=== PATIENT | female | born 1980 | race American Indian/Alaskan Native ===

== ENCOUNTER 2017-02-01 11:33 | Inpatient (IN) | payer MEDICAID, OTHER ==
[2017-02-01 12:17] LABS: Basophils % (Auto) 0.6 % (0.0-1.8); Hematocrit 27.8 % (30.3-42.9); Hemoglobin 9.1 gm/dl (10.1-14.3); Mean Corpuscular HGB Conc 33 % (30-34); Mean Corpuscular Hemoglobin 29 pg (28-32); Mean Corpuscular Volume 88 fl (79-97); Platelet Count 233 K/mm3 (140-440); Red Blood Count 3.15 M/mm3 (3.65-5.03); Red Cell Distribution Width 12.3 % (13.2-15.2); White Blood Count 7.3 K/mm3 (4.5-11.0)
[2017-02-01 12:27] LABS: Anion Gap 17 mmol/L; BUN/Creatinine Ratio 5.23; Blood Urea Nitrogen 11 mg/dL (7-17); Calcium 8.8 mg/dL (8.4-10.2); Carbon Dioxide 22 mmol/L (22-30); Chloride 104.6 mmol/L (98-107); Glucose 84 mg/dL (65-100); Potassium 3.7 mmol/L (3.6-5.0); Sodium 140 mmol/L (137-145)
[2017-02-01] MEDS ORDERED: MORPHINE IV ONE (22:14)
[2017-02-01] MEDS ORDERED: NITRO-BID 2% TP ONE (22:14)
[2017-02-01] MEDS ORDERED: ZOFRAN IV ONE (22:14)
--- NOTE | 2017-02-01 22:27 | Emergency Department Report ---
HPI - General Chief Complaint: Chest Pain Time Seen by Provider: 02/01/17 22:05 - HPI HPI: Room 1 The patient is a 36-year-old female presenting with a chief complaint of chest pain. Patient states her symptoms began this morning when she awakened with pain across her chest that was aching in nature. Patient states her pain is associated with shortness of breath and nausea but denies vomiting or diaphoresis. The patient states her chest pain has been intermittent and she currently gives a score of 7-8/10. Patient states she is having occasional cough that has been nonproductive. Patient denies any history of fever. Patient states she's never had a stress test or cardiac catheterization Location: Chest Duration: Intermittent times one day Quality: Aching Severity: 8/10 Modifying factors: [see above] Context: [see above] Mode of transportation: [not driving] ED Past Medical Hx - Past Medical History Previous Medical History?: No - Surgical History Past Surgical History?: Yes Additional Surgical History: etopic. Breast biopsy- benign - Family History Family history: no significant - Social History Smoking Status: Never Smoker Substance Use Type: None - Medications Home Medications: Home Medications Medication Instructions Recorded Confirmed Last Taken Type No Known Home Medications [No 02/01/17 02/01/17 Unknown History Reported Home Medications] ED Review of Systems ROS: Stated complaint: CHEST PAIN/DIZZINESS/FATIGUE Other details as noted in HPI Comment: All other systems reviewed and negative Constitutional: denies: chills, fever Eyes: denies: eye pain, eye discharge, vision change ENT: denies: ear pain, throat pain Respiratory: cough, shortness of breath Cardiovascular: chest pain Endocrine: no symptoms reported Gastrointestinal: nausea. denies: abdominal pain, vomiting, diarrhea Genitourinary: denies: urgency, dysuria, discharge Musculoskeletal: denies: back pain, joint swelling, arthralgia Skin: denies: rash, lesions Neurological: denies: headache, weakness, paresthesias Psychiatric: denies: anxiety, depression Hematological/Lymphatic: denies: easy bleeding, easy bruising Physical Exam - Physical Exam Vital Signs: Vital Signs 02/01/17 02/01/17 02/01/17 11:48 15:06 21:57 Temperature 98 F 97.6 F 97.7 F Pulse Rate 88 58 L 88 Respiratory 18 16 18 Rate Blood Pressure 132/89 Blood Pressure 139/84 141/86 [Right] O2 Sat by Pulse 100 100 100 Oximetry 02/01/17 21:58 Temperature Pulse Rate Respiratory 18 Rate Blood Pressure Blood Pressure [Right] O2 Sat by Pulse Oximetry Physical Exam: GENERAL: The patient is well-developed well-nourished female lying on stretcher not appearing to be in acute distress. [] HEENT: Normocephalic. Atraumatic. Extraocular motions are intact. Patient has moist mucous membranes. NECK: Supple. Trachea midline CHEST/LUNGS: Clear to auscultation. There is no respiratory distress noted. HEART/CARDIOVASCULAR: Regular. There is no tachycardia. There is no gallop rub or murmur. ABDOMEN: Abdomen is soft, nontender. Patient has normal bowel sounds. There is no abdominal distention. SKIN: There is no rash. There is no edema. There is no diaphoresis. NEURO: The patient is awake, alert, and oriented. The patient is cooperative. The patient has normal speech MUSCULOSKELETAL: There is no evidence of acute injury. ED Course Vital Signs 02/01/17 02/01/17 02/01/17 11:48 15:06 21:57 Temperature 98 F 97.6 F 97.7 F Pulse Rate 88 58 L 88 Respiratory 18 16 18 Rate Blood Pressure 132/89 Blood Pressure 139/84 141/86 [Right] O2 Sat by Pulse 100 100 100 Oximetry 02/01/17 21:58 Temperature Pulse Rate Respiratory 18 Rate Blood Pressure Blood Pressure [Right] O2 Sat by Pulse Oximetry ED Medical Decision Making - Lab Data Result diagrams: 02/01/17 11:58 02/01/17 11:55 Laboratory Results - last 24 hr 02/01/17 02/01/17 02/01/17 11:55 11:58 14:41 WBC 7.3 RBC 3.15 L Hgb 9.1 L Hct 27.8 L MCV 88 MCH 29 MCHC 33 RDW 12.3 L Plt Count 233 Lymph % (Auto) 9.3 L [place] % (Auto) 10.7 H Eos % (Auto) 1.0 Baso % (Auto) 0.6 Lymph # 0.7 L [place] # 0.8 Eos # 0.1 Baso # 0.0 Seg Neutrophils % 78.4 H Seg Neutrophils # 5.8 Sodium 140 Potassium 3.7 Chloride 104.6 Carbon Dioxide 22 Anion Gap 17 BUN 11 Creatinine 2.1 H Estimated GFR 32 BUN/Creatinine Ratio 5.23 Glucose 84 Calcium 8.8 Troponin T < 0.010 0.049 H D Triglycerides 121 Cholesterol 168 LDL Cholesterol Direct 93 HDL Cholesterol 51 Cholesterol/HDL Ratio 3.29 02/01/17 17:19 WBC RBC Hgb Hct MCV MCH MCHC RDW Plt Count Lymph % (Auto) [place] % (Auto) Eos % (Auto) Baso % (Auto) Lymph # [place] # Eos # Baso # Seg Neutrophils % Seg Neutrophils # Sodium Potassium Chloride Carbon Dioxide Anion Gap BUN Creatinine Estimated GFR BUN/Creatinine Ratio Glucose Calcium Troponin T 0.024 Triglycerides Cholesterol LDL Cholesterol Direct HDL Cholesterol Cholesterol/HDL Ratio - EKG Data -: EKG Interpreted by Me EKG shows normal: sinus rhythm Rate: normal - EKG Data When compared to previous EKG there are: previous EKG unavailable Interpretation: other (no ischemic changes seen) - Radiology Data Radiology results: image reviewed (chest x-ray) interpreted by me: Chest x-ray-no focal infiltrates, no pneumothorax - Differential Diagnosis ACS, GERD, pericarditis Critical care attestation.: If time is entered above; I have spent that time in minutes in the direct care of this critically ill patient, excluding procedure time. ED Disposition Clinical Impression: Chest pain, Renal insufficiency, Elevated troponin Disposition: DC-09 OP ADMIT IP TO THIS HOSP Is pt being admited?: Yes Does the pt Need Aspirin: No (renal insufficiency) Condition: Fair Instructions: Chest Pain (ED) Referrals: PRIMARY CARE, [Primary Care Provider] - 3-5 Days Time of Disposition: 22:55 (hospitalist paged)
[2017-02-01] MEDS ORDERED: PLAVIX PO ONE (22:32)
--- NOTE | 2017-02-01 23:10 | History and Physical Report ---
History of Present Illness Date of examination: 02/01/17 Date of admission: 02/01/17 Chief complaint: Chest pain History of present illness: Is 36-year-old with no significant medical history except migraines. She presents with chest pain. Chest pain is midsternal, it out of 10 in intensity, it is an achy kind of pain. No shortness of breath. There was nausea but no vomiting. She denies any dizziness or syncope. This pain lasted for Levon therefore came to the emergency department for further evaluation. In ED the initial troponin was normal second troponin was slightly elevated. She was given Plavix because she is allergic to and is being admitted for further management. Past History Past Medical History: other (migraine headaches) Past Surgical History: Other (surgery for ectopic , right breast biopsy ) Social history: single, alcohol abuse, full code. denies: smoking Family history: diabetes, hypertension Medications and Allergies Allergies Allergy/AdvReac Type Severity Reaction Status Date / Time naproxen [From Naprosyn] Allergy Hives Verified 02/01/17 11:46 Home Medications Medication Instructions Recorded Confirmed Last Taken Type No Known Home Medications [No 02/01/17 02/01/17 Unknown History Reported Home Medications] Review of Systems All systems: negative (no fever, no abdominal pain, no urinary symptoms. All other systems reviewed and are negative) Exam - Physical Exam Narrative exam: General appearance: not in acute distress, HEENT: normocephalic, atraumatic Neck : supple, no JVD Lungs:clear to auscultation bilaterally, no crackles, no wheezes Heart :S1 and S2 regular, no murmurs, no gallop Abdomen: soft, non-tender, non-distended, normal bowel sounds Extremities: No edema clubbing or cyanosis. Neuro : awake, alert, oriented x 3. Normal speech. No focal neurological signs Psych:normal mood - Constitutional Vitals: Temp Pulse Resp BP Pulse Ox 97.7 F 88 18 141/86 100 02/01/17 21:57 02/01/17 21:57 02/01/17 21:58 02/01/17 21:57 02/01/17 21:57 Results - Labs CBC & Chem 7: 02/01/17 11:58 02/01/17 11:55 Labs: Abnormal lab results 02/01/17 02/01/17 02/01/17 Range/Units 11:55 11:58 14:41 RBC 3.15 L (3.65-5.03) M/mm3 Hgb 9.1 L (10.1-14.3) gm/dl Hct 27.8 L (30.3-42.9) % RDW 12.3 L (13.2-15.2) % Lymph % (Auto) 9.3 L (13.4-35.0) % [place] % (Auto) 10.7 H (0.0-7.3) % Lymph # 0.7 L (1.2-5.4) K/mm3 Seg Neutrophils % 78.4 H (40.0-70.0) % Creatinine 2.1 H (0.7-1.2) mg/dL Troponin T 0.049 H D (0.00-0.029) ng/mL Assessment and Plan Chest pain. To rule out acute coronary artery syndrome. Admit to Telemetry. Plavix given in ED. Aspirin not given because allergic to naproxen. For stress test in am. Nitropaste ordered. Cardiology consulted. Troponin slightly elevated. stress test in am XOCHITL. Etiology unclear. start iv fluids, repeat BMP in am DVT prophylaxis with heparin subcut. Full code
[2017-02-01] MEDS ORDERED: ZOFRAN IV PRN (23:36)
[2017-02-01] MEDS ORDERED: TYLENOL PO PRN (23:36)
[2017-02-01] MEDS ORDERED: DULCOLAX PR PRN (23:36)
[2017-02-01] MEDS ORDERED: NITROSTAT SL PRN (23:38)
[2017-02-01] MEDS ORDERED: SODIUM CHLORIDE FLUSH SYRINGE 10 ML IV PRN (23:38)
[2017-02-01] MEDS ORDERED: NACL 0.9% 1000 ML 1,000 ML IV SCH (23:45)
[2017-02-02] MEDS: MORPHINE IV PRN ×2 (01:35→06:34)
[2017-02-02] MEDS: PEPCID PO SCH ×3 (01:36→21:23)
[2017-02-02] MEDS: NITRO-BID 2% TP SCH ×4 (01:44→17:16)
[2017-02-02] MEDS: HEPARIN SUB-Q SCH ×3 (06:33→21:24)
--- NOTE | 2017-02-02 08:28 | XRay Report ---
AP CHEST : 02/01/17 22:35 CLINICAL: Chest pain. COMPARISON:Chest pain. FINDINGS: Normal heart and pulmonary vessels. The lungs are normally expanded and clear. The bones and soft tissues are normal. IMPRESSION: Normal chest.
[2017-02-02 08:42] LABS: Basophils % (Auto) 0.4 % (0.0-1.8); Eosinophils % (Auto) 0.7 % (0.0-4.3); Hematocrit 23.4 % (30.3-42.9); Hemoglobin 7.7 gm/dl (10.1-14.3); Mean Corpuscular HGB Conc 33 % (30-34); Mean Corpuscular Hemoglobin 29 pg (28-32); Mean Corpuscular Volume 87 fl (79-97); Platelet Count 192 K/mm3 (140-440); Red Cell Distribution Width 12.5 % (13.2-15.2); White Blood Count 6.3 K/mm3 (4.5-11.0)
[2017-02-02 08:54] LABS: Calcium 8.1 mg/dL (8.4-10.2); Chloride 107.1 mmol/L (98-107); Potassium 3.7 mmol/L (3.6-5.0)
[2017-02-02] MEDS: ULTRAM PO PRN ×2 (10:01→23:42)
[2017-02-02] MEDS ORDERED: LEXISCAN IV ONE ×2 (10:52→10:53)
--- NOTE | 2017-02-02 11:53 | Admit Criteria Form ---
Admission Criteria Documentation: CHEST PAIN Clinical Indications for Admission to Inpatient Care (Place 'X' for any and all applicable criteria): Admission is indicated for chest pain and ANY ONE of the following(1)(2)(3)(4)(5 ): [ ]I. Angina with acute coronary syndrome (Also use Myocardial Infarction or Angina guideline) [ ]II. Hemodynamic instability [ ]III. Angina needing acute intervention as indicated by ALL of the following( 11)(12): [ ]a) Unstable angina is present as indicated by angina that is ANY ONE of the following: [ ]i) New onset [ ]ii) Nocturnal [ ]iii) Prolonged at rest [ ]iv) Progressive [ ]b) Angina warrants acute intervention as indicated by ANY ONE of the following: [ ]i) Recurrent angina (e.g, not responding as previously to treatment) [ ]ii) Angina at rest or with low-level activities despite initial medical therapy [ ]iii) New or presumably new ST-segment depression on ECG [ ]iv) Signs or symptoms of heart failure (eg, dyspnea, pulmonary edema) [ ]v) New or worsening mitral regurgitation [ ]vi) Hemodynamic instability [ ]vii) Dangerous arrhythmia (eg, sustained ventricular tachycardia) [ ]viii) History of percutaneous coronary intervention within 6 months [ ]ix) History of coronary artery bypass graft surgery [ ]x) ALEXANDRA risk score of 2 or greater[A] [ ]xi) History of Diabetes(14) [ ]xii) High-risk cardiac ischemia findings on noninvasive testing (e.g, echocardiogram, treadmill testing, nuclear scan) [ ]xiii) Chronic renal insufficiency (ie, estimated GFR less than 60 mL/min/1.732m) [ ]xiv) Left ventricular ejection fraction less than 40% [ ]IV. Evidence of NE (eg, cardiac biomarkers positive, ST-segment elevation on ECG) also use Myocardial Infarction Criteria Form. [ ]V. Pulmonary edema [ ]. Respiratory distress [ ]VII. Chest pain indicative of serious diagnosis other than coronary artery disease (eg, aortic dissection) [X]VIII. Contraindications and/or Inappropriate clinical situations for Observational Care in patients with Chest Pain, when ANY ONE of the following is required: [ ]a) Patient with risk factor for pulmonary embolism, acute coronary syndrome and myocardial infarction (18) [ ]b) Patient with Pulmonary embolism require an average LOS of 4.3 days, therefore emergency department observation management is inappropriate 18,23 [ ]c) Painful condition/s in the elderly, have the highest rate of recidivism after emergency department observation management (10.8%) 20,21,22 [X]d) Elevated cardiac biomarker requires intensive and exhaustive care (19) [ ]IX. General contraindications and/or Inappropriate clinical situations for Observational Care in patients with Chest Pain, when ANY ONE of the following is required: [ ]a) Prediction of prolongation of LOS based on ANY ONE of the following may be considered as a contraindication for observational care 2, 3, 4, 5, 6, 7, 8, 9, 10, 11 [ ]i) Age > 65 yrs. [ ]ii) Patient arriving by ambulance [ ]iii) Patient with high acuity [ ]iv) Patient requiring vital sign monitoring [ ]v) Patient on IV medication [ ]b) Systolic blood pressures 180mmHg 3,12 [ ]c) Patient with altered mental status including delirium and other alteration of consciousness, (3) [ ]d) Patient whose discharge disposition will be to a [place] [facility] home or rehabilitation home should not be managed in Emergency Department Observation Unit. CMS rule requires 3 days hospital stay before such placement. 3,13 [ ]e) Patient with failure to thrive due to broad array of etiologies 3,16,17 [ ]f) Inability to ambulate 3,14 Extended stay beyond goal length of stay may be needed for (1)(28): [ ]a) Specific condition diagnosed after evaluation (eg, pulmonary embolism, aortic dissection) [ ]b) Unstable angina [ ]c) Continued suspicion of acute coronary syndrome with inability to complete needed cardiac evaluation (eg, patient clinically unable to undergo stress testing) [ ]d) Myocardial infarction (Contents from ANGINA and CHEST PAIN clinical indications for admission to inpatient care have been integrated in this form) The original [facility] content created by [employer] has been revised. The portions of the content which have been revised are identified through the use of italic text or in bold, and [facility] has neither reviewed nor approved the modified material. All other unmodified content is copyright [facility]. Please see references footnoted in the original [facility] edition 2016 Admission Criteria Met: Yes
--- NOTE | 2017-02-02 13:28 | Progress Note ---
Assessment and Plan Assessment and plan: Assessment/Plan 1. Chest pain sightly elevated troponin Patient scheduled for stress test today Echocardiogram ordered Cardiology consulted 2 Acute Kidney Injury/Vasomotor Nephropathy Etiology unknown Elevated creatinine IVF hydration We will repeat BMP Renal ultrasound Nephrology consulted 3 Anemia Stool occult ordered Low H&H We will closely monitor CBC DVT prophylaxis Heparin Total Time Spent with Patient (Minutes): 37 minutes History Interval history: Patient has uneventful night except headache. Hospitalist Physical - Constitutional Vitals: Temp Pulse Resp BP Pulse Ox 98.3 F 81 18 115/67 99 02/02/17 09:02 02/02/17 11:35 02/02/17 09:02 02/02/17 11:35 02/02/17 09:02 General appearance: Present: no acute distress - EENT Eyes: Present: PERRL ENT: hearing intact, clear oral mucosa - Neck Neck: Present: normal ROM - Respiratory Respiratory effort: normal - Cardiovascular Heart Sounds: Present: S1 & S2 - Extremities Extremities: no ischemia Peripheral Pulses: within normal limits - Abdominal General gastrointestinal: soft, non-tender - Integumentary Integumentary: Present: clear - Psychiatric Psychiatric: appropriate mood/affect - Neurologic Neurologic: CNII-XII intact - Allied Health Allied health notes reviewed: nursing Results - Labs CBC & Chem 7: 02/02/17 08:00 02/02/17 08:00 Labs: Laboratory Last Values WBC 6.3 K/mm3 (4.5-11.0) 02/02/17 08:00 RBC 2.70 M/mm3 (3.65-5.03) L 02/02/17 08:00 Hgb 7.7 gm/dl (10.1-14.3) L 02/02/17 08:00 Hct 23.4 % (30.3-42.9) L 02/02/17 08:00 MCV 87 fl (79-97) 02/02/17 08:00 MCH 29 pg (28-32) 02/02/17 08:00 MCHC 33 % (30-34) 02/02/17 08:00 RDW 12.5 % (13.2-15.2) L 02/02/17 08:00 Plt Count 192 K/mm3 (140-440) 02/02/17 08:00 Lymph % (Auto) 8.0 % (13.4-35.0) L 02/02/17 08:00 [place] % (Auto) 8.8 % (0.0-7.3) H 02/02/17 08:00 Eos % (Auto) 0.7 % (0.0-4.3) 02/02/17 08:00 Baso % (Auto) 0.4 % (0.0-1.8) 02/02/17 08:00 Lymph # 0.5 K/mm3 (1.2-5.4) L 02/02/17 08:00 [place] # 0.6 K/mm3 (0.0-0.8) 02/02/17 08:00 Eos # 0.0 K/mm3 (0.0-0.4) 02/02/17 08:00 Baso # 0.0 K/mm3 (0.0-0.1) 02/02/17 08:00 Seg Neutrophils % 82.1 % (40.0-70.0) H 02/02/17 08:00 Seg Neutrophils # 5.1 K/mm3 (1.8-7.7) 02/02/17 08:00 Sodium 142 mmol/L (137-145) 02/02/17 08:00 Potassium 3.7 mmol/L (3.6-5.0) 02/02/17 08:00 Chloride 107.1 mmol/L (98-107) H 02/02/17 08:00 Carbon Dioxide 24 mmol/L (22-30) 02/02/17 08:00 Anion Gap 15 mmol/L 02/02/17 08:00 BUN 10 mg/dL (7-17) 02/02/17 08:00 Creatinine 2.0 mg/dL (0.7-1.2) H 02/02/17 08:00 Estimated GFR 34 ml/min 02/02/17 08:00 BUN/Creatinine Ratio 5.00 % 02/02/17 08:00 Glucose 94 mg/dL (65-100) 02/02/17 08:00 Calcium 8.1 mg/dL (8.4-10.2) L 02/02/17 08:00 Troponin T 0.024 ng/mL (0.00-0.029) 02/01/17 17:19 Triglycerides 121 mg/dL (2-149) 02/01/17 14:41 Cholesterol 168 mg/dL (50-199) 02/01/17 14:41 LDL Cholesterol Direct 93 mg/dL (50-130) 02/01/17 14:41 HDL Cholesterol 51 mg/dL (40-59) 02/01/17 14:41 Cholesterol/HDL Ratio 3.29 % 02/01/17 14:41 - Imaging and Cardiology Chest x-ray: image reviewed (Normal)
--- NOTE | 2017-02-02 14:31 | Consultation ---
History of Present Illness Consult date: 02/02/17 Requesting physician: DENISHA CHATMAN Consult reason: chest pain History of present illness: The patient is a s 36-year-old female with a past medical history significant for migraines. She presented with c/o chest pain since yesterday AM. She reports that the chest pain awoke her from sleep yesterday morning. She then sat upright in bed and noted SOB and dizziness. When she got out of bed, she noted BLE weakness. Her symptoms persisted throughout the morning and her daughter eventually brought her to the ED for further evaluation. She describes her chest pain as an intermittent, nonexertional, nonradiating precordial aching pain. On evaluation, she states that her original chest pain has nearly resolved. However, she is noted to have precordial tenderness to palpation but reports that this pain is different than her chest pain on presentation. She also currently c/o migraine headache. She underwent lexiscan MPI stress test this AM, which revealed small inferoapical perfusion defect, normal EF. Past History Past Medical History: other (migraine headaches) Past Surgical History: Other (surgery for ectopic , right breast biopsy ) Social history: single, full code. denies: smoking, alcohol abuse Family history: diabetes, hypertension Medications and Allergies Allergies Allergy/AdvReac Type Severity Reaction Status Date / Time naproxen [From Naprosyn] Allergy Hives Verified 02/01/17 11:46 Home Medications Medication Instructions Recorded Confirmed Last Taken Type No Known Home Medications [No 02/01/17 02/01/17 Unknown History Reported Home Medications] Active Meds: Active Medications Acetaminophen (Tylenol) 650 mg PO Q4H PRN PRN Reason: Pain MILD(1-3)/Fever >100.5/AGRAWAL Bisacodyl (Dulcolax) 10 mg [place] QDAY PRN PRN Reason: Constipation unrelieved by MOM Clopidogrel Bisulfate (Plavix) 75 mg PO QDAY RASHMI Famotidine (Pepcid) 10 mg PO BID [facility] Heparin Sodium (Porcine) (Heparin) 5,000 unit SUB-Q Q8HR [facility] Last Admin: 02/02/17 06:33 Dose: 5,000 unit Sodium Chloride (Nacl 0.9% 1000 Ml) 2,000 mls @ 100 mls/hr IV DIRECT RASHMI Morphine Sulfate (Morphine) 2 mg IV Q5MIN PRN PRN Reason: Chest Pain Last Admin: 02/02/17 06:34 Dose: 2 mg Nitroglycerin (Nitrostat) 0.4 mg SL Q5M PRN PRN Reason: Chest Pain Nitroglycerin (Nitro-Bid 2%) 0.5 inch TP QIDNTG [facility] PRN Reason: Protocol Last Admin: 02/02/17 10:02 Dose: 0.5 inch Ondansetron HCl (Zofran) 4 mg IV Q6H PRN PRN Reason: nausea or vomiting Sodium Chloride (Sodium Chloride Flush Syringe 10 Ml) 10 ml IV PRN PRN PRN Reason: LINE FLUSH Tramadol HCl (Ultram) 50 mg PO Q4H PRN PRN Reason: Pain, Moderate (4-6) Last Admin: 02/02/17 10:01 Dose: 50 mg Review of Systems Constitutional: no weight loss, no weight gain, no fever, no chills, no sweats Ears, nose, mouth and throat: no ear pain, no nose pain, no sinus pressure, no sinus pain Cardiovascular: chest pain, lightheadedness, shortness of breath, no orthopnea, no palpitations, no rapid/irregular heart beat, no edema, no syncope, no dyspnea on exertion, no high blood pressure, no leg edema Respiratory: shortness of breath, no cough, no dyspnea on exertion, no congestion, no wheezing, no pain Gastrointestinal: no abdominal pain, no nausea, no vomiting, no diarrhea, no constipation, no change in bowel habits Genitourinary Female: no pelvic pain, no flank pain, no dysuria, no urinary frequency, no urgency Musculoskeletal: no neck stiffness, no neck pain, no shooting arm pain, no arm numbness/tingling, no low back pain, no shooting leg pain, no leg numbness/ tingling, no redness of joints Integumentary: no rash, no pruritis, no redness, no sores, no wounds Neurological: no paralysis, no weakness, no parathesias, no numbness, no tingling, no seizures, no syncope Psychiatric: no anxiety Endocrine: no cold intolerance, no heat intolerance Hematologic/Lymphatic: no easy bruising, no easy bleeding, no lymphadenopathy Allergic/Immunologic: no urticaria, no wheezing, no persistent infections Physical Examination Vital Signs Temp Pulse Resp BP Pulse Ox 98 F 88 18 132/89 100 02/01/17 11:48 02/01/17 11:48 02/01/17 11:48 02/01/17 11:48 02/01/17 11:48 General appearance: no acute distress HEENT: Positive: PERRL, Normocephaly, Mucus Membranes Moist Neck: Positive: neck supple, trachea midline Cardiac: Positive: Reg Rate and Rhythm, S1/S2 Lungs: Positive: clear to auscultation Neuro: Positive: Grossly Intact, Cranial Nerve 2-12 Intact Abdomen: Positive: Soft, Active Bowel Sounds. Negative: Tender Skin: Positive: Clear. Negative: Rash, Wound Musculoskeletal: No Fluid Collection, No Pain, Normal Range of Motion Extremities: Absent: edema Results 02/02/17 08:00 02/02/17 08:00 CBC 02/02/17 Range/Units 08:00 WBC 6.3 (4.5-11.0) K/mm3 RBC 2.70 L (3.65-5.03) M/mm3 Hgb 7.7 L (10.1-14.3) gm/dl Hct 23.4 L (30.3-42.9) % Plt Count 192 (140-440) K/mm3 Lymph # 0.5 L (1.2-5.4) K/mm3 [place] # 0.6 (0.0-0.8) K/mm3 Eos # 0.0 (0.0-0.4) K/mm3 Baso # 0.0 (0.0-0.1) K/mm3 Comprehensive Metabolic Panel 02/02/17 Range/Units 08:00 Sodium 142 (137-145) mmol/L Potassium 3.7 (3.6-5.0) mmol/L Chloride 107.1 H (98-107) mmol/L Carbon Dioxide 24 (22-30) mmol/L BUN 10 (7-17) mg/dL Creatinine 2.0 H (0.7-1.2) mg/dL Glucose 94 (65-100) mg/dL Calcium 8.1 L (8.4-10.2) mg/dL - Imaging and Cardiology EKG: image reviewed EKG interpretations - Telemetry EKG Rhythm: Sinus Rhythm - EKG Sinus rhythms and dysrhythmias: sinus rhythm Assessment and Plan S/p lexiscan MPI this AM, which revealed small inferoapical perfusion defect which may be artifactual, normal EF. D/c plavix. Await echo. Obtain DDimer. Obtain orthostatics. Await nephrology consultation. Anemia w/u per primary. Consider GI consultation. The patient has been seen in conjunction with Dr. Diaz who agrees with the assessment and plan of care. - Patient Problems (1) Chest pain Current Visit: Yes Status: Acute Qualifiers: Chest pain type: C Ischemic chest pain type: I Plan to address problem: EKG with NAF (2) Elevated troponin Current Visit: Yes Status: Acute Plan to address problem: negative for AMI (3) Pre-syncope Current Visit: Yes Status: Acute (4) Anemia Current Visit: Yes Status: Acute Qualifiers: Anemia type: A Iron deficiency anemia type: I Vitamin B12 deficiency anemia type: V Folate deficiency anemia type: F Bone marrow failure anemia type: B Hemolytic anemia type: H Other causes of anemia: O Chronic kidney disease stage: C (5) XOCHITL (acute kidney injury) Current Visit: Yes Status: Acute
[2017-02-02] MEDS: NACL 0.9% 1000 ML 2,000 ML IV SCH (17:28)
--- NOTE | 2017-02-02 19:35 | Treadmill Report ---
REASON FOR STUDY: Chest pain. IMAGING PROTOCOL: The patient received 10 mCi of Technetium 99m Tetrofosmin for resting image and 28 mCi of Technetium 99m Tetrofosmin for stress imaging. The imaging for the whole procedure was completed 30-90 minutes following the initial injection of Technetium 99m tetrofosmin. The SPECT imaging in the 180 degree arc was performed in the right anterior oblique projection. Computerized reconstruction of the images was performed for analysis. IMAGING RESULTS: Normal cavity size from stress to rest. Normal distribution of radionuclide in the anterior, inferior, septal, lateral. There is a small area of reversibility seen in the inferoapical region seen on stress compared to rest. Gated SPECT, EF 68% with no wall motion abnormality. The patient infused Lexiscan with no EKG changes. SUMMARY: 1. Negative Lexiscan EKG. 2. The patient has a small inferoapical defect suggestive of ischemia, otherwise normal perfusion anterior, inferior, septal, lateral regions and anterior apical with normal EF is 68%. [facility]# [id number] JENNI/CODY
[2017-02-02] MEDS ORDERED: PLAVIX PO SCH (20:00)
--- NOTE | 2017-02-02 22:47 | Consultation ---
History of Present Illness - Reason for Consult Consult date: 02/02/17 elevated d-dimer Requesting physician: NATI MIRANDA - History of Present Illness Thank you for this consult. Patient seen/examined.record reviewed, case d/w patient. Kindly asked to see for the reasons above. As per her account, no hx of anemia, except in 2012 with .W/up revealed elevated d-dimer. unable to do full imaging w/up due to previous exposure to chemicals.He denies any CP/ SOB at this time.It is well known, that d-dimer is very sensitive but non specific, and with no sxs,i think she can be put on prophylactic anticoag until V/Q can be done.will do w/up for anemia. Past History Past Medical History: other (migraine headaches) Past Surgical History: Other (surgery for ectopic , right breast biopsy ) Social history: single, full code. denies: smoking, alcohol abuse Family history: diabetes, hypertension Medications and Allergies Allergies Allergy/AdvReac Type Severity Reaction Status Date / Time naproxen [From Naprosyn] Allergy Hives Verified 02/01/17 11:46 Home Medications Medication Instructions Recorded Confirmed Last Taken Type No Known Home Medications [No 02/01/17 02/01/17 Unknown History Reported Home Medications] Active Meds: Active Medications Acetaminophen (Tylenol) 650 mg PO Q4H PRN PRN Reason: Pain MILD(1-3)/Fever >100.5/AGRAWAL Bisacodyl (Dulcolax) 10 mg [place] QDAY PRN PRN Reason: Constipation unrelieved by MOM Famotidine (Pepcid) 10 mg PO BID [facility] Last Admin: 02/02/17 21:23 Dose: 10 mg Heparin Sodium (Porcine) (Heparin) 5,000 unit SUB-Q Q8HR [facility] Last Admin: 02/02/17 21:24 Dose: 5,000 unit Sodium Chloride (Nacl 0.9% 1000 Ml) 2,000 mls @ 100 mls/hr IV DIRECT [facility]ASH[facility] Last Admin: 02/02/17 17:28 Dose: 100 mls/hr Morphine Sulfate (Morphine) 2 mg IV Q5MIN PRN PRN Reason: Chest Pain Last Admin: 02/02/17 06:34 Dose: 2 mg Nitroglycerin (Nitrostat) 0.4 mg SL Q5M PRN PRN Reason: Chest Pain Ondansetron HCl (Zofran) 4 mg IV Q6H PRN PRN Reason: nausea or vomiting Sodium Chloride (Sodium Chloride Flush Syringe 10 Ml) 10 ml IV PRN PRN PRN Reason: LINE FLUSH Tramadol HCl (Ultram) 50 mg PO Q4H PRN PRN Reason: Pain, Moderate (4-6) Last Admin: 02/02/17 10:01 Dose: 50 mg Review of Systems Breasts: deferred Exam - Constitutional Vitals: Temp Pulse Resp BP Pulse Ox 98.3 F 75 18 111/80 98 02/02/17 20:00 02/02/17 20:00 02/02/17 20:00 02/02/17 20:00 02/02/17 20:00 General appearance: Present: no acute distress, well-nourished - EENT Eyes: Present: PERRL ENT: hearing intact, clear oral mucosa - Neck Neck: Present: supple, normal ROM - Respiratory Respiratory effort: normal Respiratory: bilateral: CTA - Cardiovascular Heart Sounds: Present: S1 & S2. Absent: rub, click - Extremities Extremities: pulses symmetrical, No edema Peripheral Pulses: within normal limits - Abdominal General gastrointestinal: Present: soft, non-tender, non-distended, normal bowel sounds Female genitourinary: Present: deferred - Rectal Rectal Exam: deferred - Integumentary Integumentary: Present: clear, warm, dry - Musculoskeletal Musculoskeletal: gait normal, strength equal bilaterally - Psychiatric Psychiatric: appropriate mood/affect, intact judgment & insight - Neurologic Neurologic: CNII-XII intact, moves all extremities Results - Labs CBC & Chem 7: 02/02/17 08:00 02/02/17 08:00 Labs: Abnormal lab results 02/02/17 02/02/17 02/02/17 Range/Units 08:00 08:00 15:43 RBC 2.70 L (3.65-5.03) M/mm3 Hgb 7.7 L (10.1-14.3) gm/dl Hct 23.4 L (30.3-42.9) % RDW 12.5 L (13.2-15.2) % Lymph % (Auto) 8.0 L (13.4-35.0) % [place] % (Auto) 8.8 H (0.0-7.3) % Lymph # 0.5 L (1.2-5.4) K/mm3 Seg Neutrophils % 82.1 H (40.0-70.0) % D-Dimer 3373.48 H (0-234) ng/mlDDU Chloride 107.1 H (98-107) mmol/L Creatinine 2.0 H (0.7-1.2) mg/dL Calcium 8.1 L (8.4-10.2) mg/dL Assessment and Plan - Patient Problems (1) XOCHITL (acute kidney injury) Current Visit: Yes Status: Acute (2) Anemia Current Visit: Yes Status: Acute Qualifiers: Anemia type: A Iron deficiency anemia type: I Vitamin B12 deficiency anemia type: V Folate deficiency anemia type: F Bone marrow failure anemia type: B Hemolytic anemia type: H Other causes of anemia: O Chronic kidney disease stage: C Plan to address problem: see w/up (3) Chest pain Current Visit: Yes Status: Acute Qualifiers: Chest pain type: C Ischemic chest pain type: I Plan to address problem: follow cardiology
[2017-02-03 00:25] LABS: Bilirubin,Direct < 0.2 mg/dL (0-0.2); Bilirubin,Indirect 0.2 mg/dL
[2017-02-03] MEDS: NACL 0.9% 1000 ML 2,000 ML IV SCH (04:10)
[2017-02-03 05:47] LABS: Hematocrit 22.5 % (30.3-42.9); Hemoglobin 7.3 gm/dl (10.1-14.3); Mean Corpuscular HGB Conc 32 % (30-34); Mean Corpuscular Hemoglobin 29 pg (28-32); Mean Corpuscular Volume 90 fl (79-97); Platelet Count 179 K/mm3 (140-440); Red Blood Count 2.52 M/mm3 (3.65-5.03); Red Cell Distribution Width 12.6 % (13.2-15.2); White Blood Count 4.6 K/mm3 (4.5-11.0)
[2017-02-03 06:09] LABS: Anion Gap 16 mmol/L; BUN/Creatinine Ratio 5.26; Blood Urea Nitrogen 10 mg/dL (7-17); Calcium 7.8 mg/dL (8.4-10.2); Carbon Dioxide 22 mmol/L (22-30); Glucose 88 mg/dL (65-100); Iron 63 ug/dL (37-170); Potassium 3.5 mmol/L (3.6-5.0); Sodium 140 mmol/L (137-145)
[2017-02-03 06:38] LABS: Anisocytosis 2+; Basophils % (Manual) 0 % (0.0-1.8); Blastocytes % (Manual) 0 %; Hypochromasia 1+; Target Cells Few
[2017-02-03 06:39] LABS: Diff Status Complete
[2017-02-03] MEDS: HEPARIN SUB-Q SCH ×3 (06:44→23:00)
--- NOTE | 2017-02-03 07:36 | Ultrasound Report ---
Renal sonogram: History: Renal insufficiency. Findings: Right kidney 11.7 x 5 x 5.4 cm. Cortical thickness 1.1 cm. The left kidney 11 x 5.4 x 4.4 cm. Cortical thickness 1.4 cm. Bilateral uniformly echogenic kidneys. No evidence of mass or hydronephrosis. Impression: Bilateral echogenic kidneys.
--- NOTE | 2017-02-03 11:58 | Progress Note ---
Assessment and Plan Cont present cardiac regimen. Await echo. In regards to elevated DDimer, pt for V/Q scan in AM given stress MPI on 02/02. BLE venous dopplers negative for DVT/SVT. Await nephrology consultation. Anemia w/u per hematology. The patient has been seen in conjunction with Dr. Diaz who agrees with the assessment and plan of care. - Patient Problems (1) Chest pain Current Visit: Yes Status: Acute Qualifiers: Chest pain type: C Ischemic chest pain type: I (2) Elevated troponin Current Visit: Yes Status: Acute (3) Pre-syncope Current Visit: Yes Status: Acute (4) Anemia Current Visit: Yes Status: Acute Qualifiers: Anemia type: A Iron deficiency anemia type: I Vitamin B12 deficiency anemia type: V Folate deficiency anemia type: F Bone marrow failure anemia type: B Hemolytic anemia type: H Other causes of anemia: O Chronic kidney disease stage: C (5) XOCHITL (acute kidney injury) Current Visit: Yes Status: Acute (6) Elevated d-dimer Current Visit: Yes Status: Acute Subjective Date of service: 02/03/17 Principal diagnosis: chest pain Interval history: Pt resting comfortably. Still c/o chest soreness. VSS. Objective Last Vital Signs Temp 97.8 F 02/03/17 05:15 Pulse 68 02/03/17 09:00 Resp 18 02/03/17 05:15 BP 110/59 02/03/17 05:15 Pulse Ox 98 02/03/17 05:15 - Physical Examination HEENT: Positive: PERRL, Normocephaly, Mucus Membranes Moist Neck: Positive: neck supple, trachea midline Cardiac: Positive: Reg Rate and Rhythm, S1/S2 Lungs: Positive: clear to auscultation Neuro: Positive: Grossly Intact, Cranial Nerve 2-12 Intact Abdomen: Positive: Soft, Active Bowel Sounds. Negative: Tender Skin: Positive: Clear. Negative: Rash, Wound Musculoskeletal: No Fluid Collection, No Pain, Normal Range of Motion Extremities: Absent: edema - Labs and Meds Cardiac Enzymes 02/02/17 Range/Units 23:12 Lactate Dehydrogenase 154 (91-180) units/L CBC 02/03/17 Range/Units 04:49 WBC 4.6 (4.5-11.0) K/mm3 RBC 2.52 L (3.65-5.03) M/mm3 Hgb 7.3 L (10.1-14.3) gm/dl Hct 22.5 L (30.3-42.9) % Plt Count 179 (140-440) K/mm3 Comprehensive Metabolic Panel 02/02/17 02/03/17 Range/Units 23:12 04:49 Sodium 140 (137-145) mmol/L Potassium 3.5 L (3.6-5.0) mmol/L Chloride 106.0 (98-107) mmol/L Carbon Dioxide 22 (22-30) mmol/L BUN 10 (7-17) mg/dL Creatinine 1.9 H (0.7-1.2) mg/dL Glucose 88 (65-100) mg/dL Calcium 7.8 L (8.4-10.2) mg/dL Direct Bilirubin < 0.2 (0-0.2) mg/dL Indirect Bilirubin 0.2 mg/dL - Imaging and Cardiology EKG: image reviewed - Telemetry EKG Rhythm: Sinus Rhythm - EKG Sinus rhythms and dysrhythmias: sinus rhythm
[2017-02-03] MEDS: FOLVITE PO SCH (12:09)
[2017-02-03] MEDS: VITAMIN B-12 PO SCH (12:10)
[2017-02-03] MEDS: PEPCID PO SCH ×2 (12:10→22:59)
[2017-02-03] MEDS: ULTRAM PO PRN ×2 (13:00→23:05)
--- NOTE | 2017-02-03 16:24 | Progress Note ---
Assessment and Plan Assessment and plan: ASSESMENT AND PLAN 1. Chest pain sightly elevated troponin stress test negative Echocardiogram ordered patient has elevated d-dimer, bilateral Doppler ultrasound no clot We couldn't do CTA because of the elevated XOCHITL, and V/Q scan because of the stress test done yesterday ( will do V/Q scan tomorrow) Cardiology consult appreciated 2 Acute Kidney Injury/Vasomotor Nephropathy Etiology unknown Elevated creatinine, slight improvement today IVF hydration Renal ultrasound Nephrology consulted 3 Anemia - hematology consulted - H/H stable - Anemia workup was done and iron study is normal DVT prophylaxis Heparin Disposition Plan: will continue inpatient care History Interval history: Patient was seen and evaluated this morning, she is complaining of headache. She was on nitroglycerin and nitroglycerin as discontinued. Chest pains subsided. Hospitalist Physical - Physical exam Narrative exam: Not in cardiopulmonary distress. The patient appeared well nourished and normally developed. Vital signs as documented. Head exam is unremarkable. No scleral icterus . Neck is without jugular venous distension, thyromegaly, or carotid bruits. Chest: reproducible chest pain on the left side. Lungs are clear to auscultation. Cardiac exam reveals regular rate and Rhythm. First and second heart sounds normal. No murmurs, rubs or gallops. Abdominal exam reveals normal bowel sounds, no masses, no organomegaly and no aortic enlargement. Extremities are nonedematous and both femoral and pedal pulses are normal. LITIGATION [place]: Alert and oriented 3. No focal weakness. - Constitutional Vitals: Temp Pulse Resp BP Pulse Ox 97.7 F 73 18 137/90 99 02/03/17 12:24 02/03/17 12:24 02/03/17 12:24 02/03/17 12:24 02/03/17 12:24 General appearance: Present: no acute distress, well-nourished Results - Labs CBC & Chem 7: 02/03/17 04:49 02/03/17 04:49 Labs: Laboratory Last Values WBC 4.6 K/mm3 (4.5-11.0) 02/03/17 04:49 RBC 2.52 M/mm3 (3.65-5.03) L 02/03/17 04:49 Hgb 7.3 gm/dl (10.1-14.3) L 02/03/17 04:49 Hct 22.5 % (30.3-42.9) L 02/03/17 04:49 MCV 90 fl (79-97) D 02/03/17 04:49 MCH 29 pg (28-32) 02/03/17 04:49 MCHC 32 % (30-34) 02/03/17 04:49 RDW 12.6 % (13.2-15.2) L 02/03/17 04:49 Plt Count 179 K/mm3 (140-440) 02/03/17 04:49 Lymph % (Auto) 8.0 % (13.4-35.0) L 02/02/17 08:00 Bent % (Auto) 8.8 % (0.0-7.3) H 02/02/17 08:00 Eos % (Auto) 0.7 % (0.0-4.3) 02/02/17 08:00 Baso % (Auto) [employer] 02/03/17 04:49 Lymph # 0.5 K/mm3 (1.2-5.4) L 02/02/17 08:00 Bent # 0.6 K/mm3 (0.0-0.8) 02/02/17 08:00 Eos # 0.0 K/mm3 (0.0-0.4) 02/02/17 08:00 Baso # 0.0 K/mm3 (0.0-0.1) 02/02/17 08:00 Add Manual Diff Complete 02/03/17 04:49 Total Counted 100 02/03/17 04:49 Seg Neutrophils % 82.1 % (40.0-70.0) H 02/02/17 08:00 Seg Neuts % (Manual) 65.0 % (40.0-70.0) 02/03/17 04:49 Band Neutrophils % 0 % 02/03/17 04:49 Lymphocytes % (Manual) 29.0 % (13.4-35.0) 02/03/17 04:49 Reactive Lymphs % (Man) 0 % 02/03/17 04:49 Monocytes % (Manual) 5.0 % (0.0-7.3) 02/03/17 04:49 Eosinophils % (Manual) 1.0 % (0.0-4.3) 02/03/17 04:49 Basophils % (Manual) 0 % (0.0-1.8) 02/03/17 04:49 Metamyelocytes % 0 % 02/03/17 04:49 Myelocytes % 0 % 02/03/17 04:49 Promyelocytes % 0 % 02/03/17 04:49 Blast Cells % 0 % 02/03/17 04:49 Nucleated RBC % Not Reportable 02/03/17 04:49 Seg Neutrophils # 5.1 K/mm3 (1.8-7.7) 02/02/17 08:00 Seg Neutrophils # Man 3.0 K/mm3 (1.8-7.7) 02/03/17 04:49 Band Neutrophils # 0.0 K/mm3 02/03/17 04:49 Lymphocytes # (Manual) 1.3 K/mm3 (1.2-5.4) 02/03/17 04:49 Abs React Lymphs (Man) 0.0 K/mm3 02/03/17 04:49 Monocytes # (Manual) 0.2 K/mm3 (0.0-0.8) 02/03/17 04:49 Eosinophils # (Manual) 0.0 K/mm3 (0.0-0.4) 02/03/17 04:49 Basophils # (Manual) 0.0 K/mm3 (0.0-0.1) 02/03/17 04:49 Metamyelocytes # 0.0 K/mm3 02/03/17 04:49 Myelocytes # 0.0 K/mm3 02/03/17 04:49 Promyelocytes # 0.0 K/mm3 02/03/17 04:49 Blast Cells # 0.0 K/mm3 02/03/17 04:49 WBC Morphology Not Reportable 02/03/17 04:49 Hypersegmented Neuts Not Reportable 02/03/17 04:49 Hyposegmented Neuts Not Reportable 02/03/17 04:49 Hypogranular Neuts Not Reportable 02/03/17 04:49 Smudge Cells Not Reportable 02/03/17 04:49 Toxic Granulation Not Reportable 02/03/17 04:49 Toxic Vacuolation Not Reportable 02/03/17 04:49 Dohle Bodies Not Reportable 02/03/17 04:49 Pelger-Huet Anomaly Not Reportable 02/03/17 04:49 Declan Rods Not Reportable 02/03/17 04:49 Platelet Estimate Appears normal 02/03/17 04:49 Clumped Platelets Not Reportable 02/03/17 04:49 Plt Clumps, EDTA Not Reportable 02/03/17 04:49 Large Platelets Not Reportable 02/03/17 04:49 Giant Platelets Not Reportable 02/03/17 04:49 Platelet Satelliting Not Reportable 02/03/17 04:49 Plt Morphology Comment Not Reportable 02/03/17 04:49 RBC Morphology Not Reportable 02/03/17 04:49 Dimorphic RBCs Not Reportable 02/03/17 04:49 Polychromasia Not Reportable 02/03/17 04:49 Hypochromasia 1+ 02/03/17 04:49 Poikilocytosis Not Reportable 02/03/17 04:49 Anisocytosis 2+ 02/03/17 04:49 Microcytosis Not Reportable 02/03/17 04:49 Macrocytosis Not Reportable 02/03/17 04:49 Spherocytes Not Reportable 02/03/17 04:49 Pappenheimer Bodies Not Reportable 02/03/17 04:49 Sickle Cells Not Reportable 02/03/17 04:49 Target Cells Few 02/03/17 04:49 Tear Drop Cells Not Reportable 02/03/17 04:49 Ovalocytes Not Reportable 02/03/17 04:49 Helmet Cells Not Reportable 02/03/17 04:49 [place] Bodies Not Reportable 02/03/17 04:49 [place] Rings Not Reportable 02/03/17 04:49 Eusebio Cells Not Reportable 02/03/17 04:49 Bite Cells Not Reportable 02/03/17 04:49 Crenated Cell Not Reportable 02/03/17 04:49 Elliptocytes Not Reportable 02/03/17 04:49 Acanthocytes (Spur) Not Reportable 02/03/17 04:49 Rouleaux Not Reportable 02/03/17 04:49 Hemoglobin C Crystals Not Reportable 02/03/17 04:49 Schistocytes Not Reportable 02/03/17 04:49 Malaria parasites Not Reportable 02/03/17 04:49 Ger Bodies Not Reportable 02/03/17 04:49 Hem Pathologist Commnt No 02/03/17 04:49 D-Dimer 3373.48 ng/mlDDU (0-234) H 02/02/17 15:43 Sodium 140 mmol/L (137-145) 02/03/17 04:49 Potassium 3.5 mmol/L (3.6-5.0) L 02/03/17 04:49 Chloride 106.0 mmol/L (98-107) 02/03/17 04:49 Carbon Dioxide 22 mmol/L (22-30) 02/03/17 04:49 Anion Gap 16 mmol/L 02/03/17 04:49 BUN 10 mg/dL (7-17) 02/03/17 04:49 Creatinine 1.9 mg/dL (0.7-1.2) H 02/03/17 04:49 Estimated GFR 36 ml/min 02/03/17 04:49 BUN/Creatinine Ratio 5.26 % 02/03/17 04:49 Glucose 88 mg/dL (65-100) 02/03/17 04:49 Calcium 7.8 mg/dL (8.4-10.2) L 02/03/17 04:49 Iron 63 ug/dL (37-170) 02/03/17 04:49 Ferritin 171.1 ng/mL (13.0-400.0) 02/03/17 04:49 Total Bilirubin 0.40 mg/dL (0.1-1.2) 02/02/17 23:12 Direct Bilirubin < 0.2 mg/dL (0-0.2) 02/02/17 23:12 Indirect Bilirubin 0.2 mg/dL 02/02/17 23:12 Lactate Dehydrogenase 154 units/L (91-180) 02/02/17 23:12 Troponin T 0.024 ng/mL (0.00-0.029) 02/01/17 17:19 Triglycerides 121 mg/dL (2-149) 02/01/17 14:41 Cholesterol 168 mg/dL (50-199) 02/01/17 14:41 LDL Cholesterol Direct 93 mg/dL (50-130) 02/01/17 14:41 HDL Cholesterol 51 mg/dL (40-59) 02/01/17 14:41 Cholesterol/HDL Ratio 3.29 % 02/01/17 14:41 Vitamin B12 187.8 pg/mL (211-911) L 02/03/17 04:49 Folate 5.34 ng/mL (7.3-26.0) L 02/03/17 04:49 Direct Antiglob Test Negative 02/02/17 23:12 NANDINI, Poly Interpret Negative 02/02/17 23:12 Mild improvement in creatinine.
--- NOTE | 2017-02-03 22:46 | Consultation ---
History of Present Illness - Reason for Consult Consult date: 02/03/17 - History of Present Illness Patient seen/examined, labs reviewed, B12 low, folate low, iron NL.V/Q scheduled for tomorrow.notes reviewed. Past History Past Medical History: other (migraine headaches) Past Surgical History: Other (surgery for ectopic , right breast biopsy ) Social history: single, full code. denies: smoking, alcohol abuse Family history: diabetes, hypertension Medications and Allergies Allergies Allergy/AdvReac Type Severity Reaction Status Date / Time naproxen [From Naprosyn] Allergy Hives Verified 02/01/17 11:46 Home Medications Medication Instructions Recorded Confirmed Last Taken Type No Known Home Medications [No 02/01/17 02/01/17 Unknown History Reported Home Medications] Active Meds: Active Medications Acetaminophen (Tylenol) 650 mg PO Q4H PRN PRN Reason: Pain MILD(1-3)/Fever >100.5/AGRAWAL Bisacodyl (Dulcolax) 10 mg [place] QDAY PRN PRN Reason: Constipation unrelieved by MOM Cyanocobalamin (Vitamin B-12) 1,000 mcg PO QDAY [facility] Last Admin: 02/03/17 12:10 Dose: 1,000 mcg Famotidine (Pepcid) 10 mg PO BID [facility] Last Admin: 02/03/17 12:10 Dose: 10 mg Folic Acid (Folvite) 1 mg PO QDAY [facility] Last Admin: 02/03/17 12:09 Dose: 1 mg Heparin Sodium (Porcine) (Heparin) 5,000 unit SUB-Q Q8HR [facility] Last Admin: 02/03/17 13:52 Dose: 5,000 unit Sodium Chloride (Nacl 0.9% 1000 Ml) 2,000 mls @ 100 mls/hr IV DIRECT [facility] Last Admin: 02/03/17 04:10 Dose: 100 mls/hr Morphine Sulfate (Morphine) 2 mg IV Q5MIN PRN PRN Reason: Chest Pain Last Admin: 02/02/17 06:34 Dose: 2 mg Ondansetron HCl (Zofran) 4 mg IV Q6H PRN PRN Reason: nausea or vomiting Sodium Chloride (Sodium Chloride Flush Syringe 10 Ml) 10 ml IV PRN PRN PRN Reason: LINE FLUSH Tramadol HCl (Ultram) 50 mg PO Q4H PRN PRN Reason: Pain, Moderate (4-6) Last Admin: 02/03/17 13:00 Dose: 50 mg Review of Systems Breasts: deferred Exam - Constitutional Vitals: Temp Pulse Resp BP Pulse Ox 98.2 F 0 L 20 120/77 100 02/03/17 21:39 02/03/17 21:39 02/03/17 21:39 02/03/17 21:39 02/03/17 21:39 General appearance: Present: no acute distress, well-nourished - EENT Eyes: Present: PERRL ENT: hearing intact, clear oral mucosa - Neck Neck: Present: supple, normal ROM - Respiratory Respiratory effort: normal Respiratory: bilateral: CTA - Cardiovascular Heart Sounds: Present: S1 & S2. Absent: rub, click - Extremities Extremities: pulses symmetrical, No edema Peripheral Pulses: within normal limits - Abdominal General gastrointestinal: Present: soft, non-tender, non-distended, normal bowel sounds Female genitourinary: Present: deferred - Rectal Rectal Exam: deferred - Integumentary Integumentary: Present: clear, warm, dry - Musculoskeletal Musculoskeletal: gait normal, strength equal bilaterally - Psychiatric Psychiatric: appropriate mood/affect, intact judgment & insight - Neurologic Neurologic: CNII-XII intact, moves all extremities Results - Labs CBC & Chem 7: 02/03/17 04:49 02/03/17 04:49 Labs: Abnormal lab results 02/03/17 02/03/17 02/03/17 Range/Units 04:49 04:49 04:49 RBC 2.52 L (3.65-5.03) M/mm3 Hgb 7.3 L (10.1-14.3) gm/dl Hct 22.5 L (30.3-42.9) % RDW 12.6 L (13.2-15.2) % Potassium 3.5 L (3.6-5.0) mmol/L Creatinine 1.9 H (0.7-1.2) mg/dL Calcium 7.8 L (8.4-10.2) mg/dL Vitamin B12 187.8 L (211-911) pg/mL Folate (7.3-26.0) ng/mL 02/03/17 Range/Units 04:49 RBC (3.65-5.03) M/mm3 Hgb (10.1-14.3) gm/dl Hct (30.3-42.9) % RDW (13.2-15.2) % Potassium (3.6-5.0) mmol/L Creatinine (0.7-1.2) mg/dL Calcium (8.4-10.2) mg/dL Vitamin B12 (211-911) pg/mL Folate 5.34 L (7.3-26.0) ng/mL Assessment and Plan - Patient Problems (1) XOCHITL (acute kidney injury) Current Visit: Yes Status: Acute (2) Anemia Current Visit: Yes Status: Acute Qualifiers: Anemia type: A Iron deficiency anemia type: I Vitamin B12 deficiency anemia type: V Folate deficiency anemia type: F Bone marrow failure anemia type: B Hemolytic anemia type: H Other causes of anemia: O Chronic kidney disease stage: C Plan to address problem: see w/up See notes with lab results. She may benefit from B12/Folate replacement. (3) Chest pain Current Visit: Yes Status: Acute Qualifiers: Chest pain type: C Ischemic chest pain type: I Plan to address problem: follow cardiology
[2017-02-03 23:58] LABS: Bacteria,Urine 1+ /HPF (Negative); Bilirubin,Urine NEG (Negative); Blood,Urine LG (Negative); Ketones,Urine NEG (Negative); Leukocyte Esterase,Urine TR (Negative); Nitrite,Urine NEG (Negative); Urobilinogen,Urine < 2.0 mg/dL (<2.0)
[2017-02-04] MEDS: NACL 0.9% 1000 ML 2,000 ML IV SCH (03:46)
[2017-02-04 05:49] LABS: Basophils % (Auto) 0.5 % (0.0-1.8); Eosinophils % (Auto) 1.7 % (0.0-4.3); Hematocrit 21.8 % (30.3-42.9); Hemoglobin 7.1 gm/dl (10.1-14.3); Mean Corpuscular HGB Conc 33 % (30-34); Mean Corpuscular Hemoglobin 29 pg (28-32); Mean Corpuscular Volume 89 fl (79-97); Platelet Count 167 K/mm3 (140-440); Red Blood Count 2.46 M/mm3 (3.65-5.03); Red Cell Distribution Width 12.6 % (13.2-15.2); White Blood Count 4.6 K/mm3 (4.5-11.0)
[2017-02-04 06:17] LABS: Calcium 7.9 mg/dL (8.4-10.2); Chloride 108.6 mmol/L (98-107); Phosphorous 2.9 mg/dL (2.5-4.5); Potassium 4.1 mmol/L (3.6-5.0)
[2017-02-04] MEDS: HEPARIN SUB-Q SCH ×2 (06:34→14:51)
--- NOTE | 2017-02-04 07:39 | Consultation ---
History of Present Illness - Reason for Consult Consult date: 02/04/17 acute renal failure - History of Present Illness Patient is a 36-year-old AAF with history significant for Migraine came to the ER with one day h/o chest pain. Chest pain was midsternal, achy in nature, not radiating. Patient is painfree now. She also reports of decreased appetite, intermittent nausea, decreased PO intake for atleast few weeks. Her creatinine on admission was 2.1, has improved to 1.6 today. Patient is followed by [facility] Onc for anemia. Her creatinine was 0.8 in jun 2014. She takes Aleve intermittently. Past History Past Medical History: other (migraine headaches) Past Surgical History: Other (surgery for ectopic , right breast biopsy ) Social history: single, full code. denies: smoking, alcohol abuse Family history: diabetes, hypertension Medications and Allergies Allergies Allergy/AdvReac Type Severity Reaction Status Date / Time naproxen [From Naprosyn] Allergy Hives Verified 02/01/17 11:46 Home Medications Medication Instructions Recorded Confirmed Last Taken Type No Known Home Medications [No 02/01/17 02/01/17 Unknown History Reported Home Medications] Active Meds: Active Medications Acetaminophen (Tylenol) 650 mg PO Q4H PRN PRN Reason: Pain MILD(1-3)/Fever >100.5/AGRAWAL Bisacodyl (Dulcolax) 10 mg [place] QDAY PRN PRN Reason: Constipation unrelieved by MOM Cyanocobalamin (Vitamin B-12) 1,000 mcg PO QDAY [facility] Last Admin: 02/03/17 12:10 Dose: 1,000 mcg Famotidine (Pepcid) 10 mg PO BID [facility] Last Admin: 02/03/17 22:59 Dose: 10 mg Folic Acid (Folvite) 1 mg PO QDAY [facility] Last Admin: 02/03/17 12:09 Dose: 1 mg Heparin Sodium (Porcine) (Heparin) 5,000 unit SUB-Q Q8HR [facility] Last Admin: 02/04/17 06:34 Dose: 5,000 unit Sodium Chloride (Nacl 0.9% 1000 Ml) 2,000 mls @ 100 mls/hr IV DIRECT [facility] Last Admin: 02/04/17 03:46 Dose: 100 mls/hr Morphine Sulfate (Morphine) 2 mg IV Q5MIN PRN PRN Reason: Chest Pain Last Admin: 02/02/17 06:34 Dose: 2 mg Ondansetron HCl (Zofran) 4 mg IV Q6H PRN PRN Reason: nausea or vomiting Last Admin: 02/04/17 03:39 Dose: 4 mg Sodium Chloride (Sodium Chloride Flush Syringe 10 Ml) 10 ml IV PRN PRN PRN Reason: LINE FLUSH Tramadol HCl (Ultram) 50 mg PO Q4H PRN PRN Reason: Pain, Moderate (4-6) Last Admin: 02/03/17 23:05 Dose: 50 mg Review of Systems Constitutional: anorexia, poor appetite, no weight loss, no weight gain, no fever, no chills, no fatigue, no weakness Ears, nose, mouth and throat: no epistaxis, no dysphagia, no vertigo Breasts: deferred Cardiovascular: chest pain, no orthopnea, no edema, no syncope, no lightheadedness, no shortness of breath, no high blood pressure, no leg edema Respiratory: no cough, no hemoptysis, no shortness of breath, no dyspnea on exertion Gastrointestinal: nausea, no abdominal pain, no vomiting, no diarrhea, no hematemesis Genitourinary Female: no dysuria, no hematuria Rectal: no bleeding Musculoskeletal: no low back pain Integumentary: no rash, no wounds Neurological: no syncope Psychiatric: no disorientation Hematologic/Lymphatic: no easy bruising, no easy bleeding Exam - Vital Signs Vital signs: Vital Signs Temp Pulse Resp BP Pulse Ox 98 F 88 18 132/89 100 02/01/17 11:48 02/01/17 11:48 02/01/17 11:48 02/01/17 11:48 02/01/17 11:48 - General Appearance General appearance: well-developed, well-nourished, appears stated age, other ( RN was present in the room, no distress) EENT: ATNC, PERRL, hearing intact, vision intact Neck: Present: neck supple Respiratory: Clear to Ascultation Heart: regular, S1S2, no murmurs Gastrointestinal: Present: normoactive bowel sounds. Absent: tenderness, distended Integumentary: no rash Neurologic: no focal deficit, no asterixis, alert and oriented x3, CN 3-12 intact Musculoskeletal: Present: other (no edema) Psychiatric: mood/affect appropriate, cooperative Results - Lab Results 02/04/17 04:56 02/04/17 04:56 Most recent lab results Calcium 7.9 mg/dL (8.4-10.2) L 02/04/17 04:56 Phosphorus 2.90 mg/dL (2.5-4.5) 02/04/17 04:56 Urine Creatinine 30.5 mg/dL (0.1-20.0) H 02/03/17 23:22 Urine Sodium 52 mEq/L 02/03/17 23:22 - Image Kidney/bladder ultrasound: report reviewed Assessment and Plan - Patient Problems (1) XOCHITL (acute kidney injury) Current Visit: Yes Status: Acute Plan to address problem: Hemodynamic Acute Kidney Injury. Renal function is improving. Patient was advised to drink adequate fluids. Avoid NSAIDs. Follow up with me 1 week. (2) Anemia Current Visit: Yes Status: Acute Qualifiers: Anemia type: A Iron deficiency anemia type: I Vitamin B12 deficiency anemia type: V Folate deficiency anemia type: F Bone marrow failure anemia type: B Hemolytic anemia type: H Other causes of anemia: O Chronic kidney disease stage: C Plan to address problem: Followed by Heme-Onc. (3) Chest pain Current Visit: Yes Status: Acute Qualifiers: Chest pain type: C Ischemic chest pain type: I
[2017-02-04] MEDS: ULTRAM PO PRN (08:12)
--- NOTE | 2017-02-04 09:31 | XRay Report ---
AP CHEST: HISTORY: Shortness of breath AP view of the chest demonstrates a normal mediastinal and cardiac contour with clear lungs and normal bony and soft tissue structures. IMPRESSION: Unremarkable AP chest.
--- NOTE | 2017-02-04 09:32 | Nuclear Medicine Report ---
LUNG SCAN, VENTILATION AND PERFUSION: History: Chest pain, shortness of breath. Technique: 5mci of Tc99m MAA was infused for the perfusion images. 15mci XE 133 gas was inhaled for the ventilatory images. Correlation is made with a chest x-ray dated 02/04/17. Findings: Inhalation of Xenon gas demonstrates a normal distribution of the activity throughout both lungs. The wash out phases show no focal retention of activity. After injection of Technetium 99m macroaggregated albumin gamma camera imaging of the lungs in multiple projections demonstrates normal pulmonary contours with a homogeneous distribution of activity. No focal areas of perfusion deficiency are identified. IMPRESSION: Low probability for pulmonary embolus.
[2017-02-04] MEDS ORDERED: TYLENOL #3 PO PRN (10:30)
[2017-02-04] MEDS: PEPCID PO SCH (10:34)
[2017-02-04] MEDS: FOLVITE PO SCH (10:34)
[2017-02-04] MEDS: VITAMIN B-12 PO SCH (10:34)
--- NOTE | 2017-02-04 13:17 | Discharge Summary ---
Providers - Providers Date of Admission: 02/01/17 23:36 Date of discharge: 02/04/17 Attending physician: NATI MIRANDA MD 02/01/17 Consult to Cardiac Rehabilitation [CONS] Routine Reason For Exam: Phase I 02/01/17 23:38 Consult to Physician [CONS] Routine Consulting Provider: FLY BANG Reason For Exam: chest pain, mild elevated Troponin Place consult to:: Malgorzata Notified:: Mellissa Phone number called:: in house Was contact made?: Yes If yes, spoke with:: mellissa Time called:: 10:39 02/02/17 14:06 Consult to Physician [CONS] Routine Consulting Provider: RAFAEL BOSTON Reason For Exam: Acute renal injury Place consult to:: Yes Notified:: Yes 02/02/17 16:58 Consult to Physician [CONS] Routine Consulting Provider: ESTIVEN MEJIA Reason For Exam: anemia, highr d-dimer, XOCHITL Place consult to:: hematology Notified:: Was contact made?: Yes Comment:: we can't do V/Q scan 02/03/17 18:01 Consult to Dietitian/Nutrition [CONS] Routine Physician Instructions: Reason For Exam: Reason for Consult: Poor oral intake Primary care physician: PAINT PREP TECHNICIAN Hospitalization Reason for admission: Chest pain, Anemia, Acute renal failure Condition: Stable Pertinent studies: Cardiac stress test negative for ischemia VQ scan negative for PE Hospital course: 36-year-old with no significant medical history except migraines. She presents with chest pain. Chest pain is midsternal, it out of 10 in intensity, it is an achy kind of pain. No shortness of breath. There was nausea but no vomiting. She denies any dizziness or syncope. This pain lasted for Levon therefore came to the emergency department for further evaluation. In ED the initial troponin was normal second troponin was slightly elevated. She was given Plavix and is admitted for further management. Patient was admitted to the hospital and she had acute renal failure, chest pain, migraines, anemia of unknown cause. Cardiac stress test was done and was negative for ischemia. D-dimer was done and it was elevated, VQ scan was done and was negative for PE. Patient did have any bleeding, her period is regular, and moderate in amount. Hematology was consulted and he ordered tests and will follow as an outpatient. AK was resolved with gentle hydration. Patient was hemodynamically stable at time of discharge. Patient's questions and concerns were addressed at the bedside. Disposition: DC-01 TO HOME OR SELFCARE Time spent for discharge: 31 minutes - Discharge Diagnoses (1) XOCHITL (acute kidney injury) Status: Chronic (2) Anemia Status: Acute Qualifiers: Anemia type: A Iron deficiency anemia type: I Vitamin B12 deficiency anemia type: V Folate deficiency anemia type: F Bone marrow failure anemia type: B Hemolytic anemia type: H Other causes of anemia: O Chronic kidney disease stage: C (3) Chest pain Status: Resolved Qualifiers: Chest pain type: C Ischemic chest pain type: I (4) Elevated d-dimer Status: Acute Core Measure Documentation - Palliative Care Palliative Care/ Comfort Measures: Not Applicable - Core Measures Any of the following diagnoses?: none Exam - Physical Exam Narrative exam: Not in cardiopulmonary distress. The patient appeared well nourished and normally developed. Vital signs as documented. Head exam is unremarkable. No scleral icterus . Neck is without jugular venous distension, thyromegaly, or carotid bruits. Chest: reproducible chest pain on the left side. Lungs are clear to auscultation. Cardiac exam reveals regular rate and Rhythm. First and second heart sounds normal. No murmurs, rubs or gallops. Abdominal exam reveals normal bowel sounds, no masses, no organomegaly and no aortic enlargement. Extremities are nonedematous and both femoral and pedal pulses are normal. 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 No focal weakness. - Constitutional Vitals: Temp Pulse Resp BP Pulse Ox 98.2 F 68 20 130/68 100 02/04/17 09:01 02/04/17 09:01 02/04/17 09:12 02/04/17 09:01 02/04/17 09:01 Plan Activity: no restrictions Weight Bearing Status: Full Weight Bearing Diet: low cholesterol, renal Follow up with: PRIMARY CAREMD [Primary Care Provider] - 3-5 Days ESTIVEN MEJIA DO [Staff Physician] - 7 Days SANTOS CHO MD [Staff Physician] - 10 Days Prescriptions: oxyCODONE /ACETAMINOPHEN [Percocet 5/325 mg] 1 tab PO Q6HR PRN #20 tablet PRN Reason: Pain
[2017-02-04 13:45] VITALS: BP 140/76
--- NOTE | 2017-02-04 15:03 | Progress Note ---
Assessment and Plan Negative cardiac work up.No evidence of pulmonary embolism. Being discharged home. - Patient Problems (1) XOCHITL (acute kidney injury) Current Visit: Yes Status: Chronic (2) Anemia Current Visit: Yes Status: Acute Qualifiers: Anemia type: A Iron deficiency anemia type: I Vitamin B12 deficiency anemia type: V Folate deficiency anemia type: F Bone marrow failure anemia type: B Hemolytic anemia type: H Other causes of anemia: O Chronic kidney disease stage: C (3) Chest pain Current Visit: Yes Status: Resolved Qualifiers: Chest pain type: C Ischemic chest pain type: I (4) Elevated d-dimer Current Visit: Yes Status: Acute (5) Elevated troponin Current Visit: Yes Status: Acute (6) Pre-syncope Current Visit: Yes Status: Resolved Subjective Date of service: 02/04/17 Principal diagnosis: chest pain Interval history: No CP or SOB. VQ lung scan: Low probability for pulmonary embolism. Objective Vital Signs Temp Pulse Pulse Pulse Resp Resp BP 02/04/17 13:43 98.0 F 71 18 140/76 02/04/17 10:00 20 02/04/17 09:12 20 02/04/17 09:01 98.2 F 68 16 130/68 02/04/17 08:12 20 02/04/17 04:40 98.0 F 0 L 65 0 L 20 119/78 02/04/17 01:21 98.0 F 0 L 75 0 L 20 126/81 02/03/17 21:39 98.2 F 0 L 69 0 L 20 120/77 02/03/17 17:10 97.9 F 68 68 20 128/87 02/03/17 16:30 97.9 F 68 68 18 128/87 Pulse Ox 02/04/17 13:43 100 02/04/17 10:00 02/04/17 09:12 02/04/17 09:01 100 02/04/17 08:12 02/04/17 04:40 98 02/04/17 01:21 99 02/03/17 21:39 100 02/03/17 17:10 02/03/17 16:30 18 L - Physical Examination General: Appears Well, No Apparent Distress HEENT: Positive: PERRL, Normocephaly, Mucus Membranes Moist Neck: Positive: neck supple Cardiac: Positive: Reg Rate and Rhythm Lungs: Positive: clear to auscultation, Normal Breath Sounds, No Wheeze, Rales, Rhonchi Neuro: Positive: Grossly Intact, Cranial Nerve 2-12 Intact Abdomen: Positive: Soft, Active Bowel Sounds. Negative: Tender Skin: Positive: Clear. Negative: Rash, Wound Musculoskeletal: No Fluid Collection, No Pain, Normal Range of Motion Extremities: Absent: edema - Labs and Meds CBC 02/04/17 Range/Units 04:56 WBC 4.6 (4.5-11.0) K/mm3 RBC 2.46 L (3.65-5.03) M/mm3 Hgb 7.1 L (10.1-14.3) gm/dl Hct 21.8 L (30.3-42.9) % Plt Count 167 (140-440) K/mm3 Lymph # 1.2 (1.2-5.4) K/mm3 Hart # 0.6 (0.0-0.8) K/mm3 Eos # 0.1 (0.0-0.4) K/mm3 Baso # 0.0 (0.0-0.1) K/mm3 Comprehensive Metabolic Panel 02/04/17 Range/Units 04:56 Sodium 142 (137-145) mmol/L Potassium 4.1 (3.6-5.0) mmol/L Chloride 108.6 H (98-107) mmol/L Carbon Dioxide 22 (22-30) mmol/L BUN 8 (7-17) mg/dL Creatinine 1.6 H (0.7-1.2) mg/dL Glucose 78 (65-100) mg/dL Calcium 7.9 L (8.4-10.2) mg/dL - Imaging and Cardiology EKG: report reviewed, image reviewed - Telemetry EKG Rhythm: Sinus Rhythm - EKG Sinus rhythms and dysrhythmias: sinus rhythm
--- NOTE | 2017-02-06 07:21 | Vascular Lab Report ---
LOWER EXTREMITY VENOUS DUPLEX: REASON FOR EXAM: Elevated d-dimer. COMMENTS ON THE RIGHT: All veins visualized are freely compressible without evidence of internal echogenicity. Flow is spontaneous and phasic throughout. COMMENTS ON THE LEFT: All veins visualized are freely compressible without evidence of internal echogenicity. Flow is spontaneous and phasic throughout. IMPRESSION: No evidence of acute or chronic deep venous thrombosis in either lower extremity.
[2017-02-06 07:31] LABS: Total Iron Binding Capacity 146 mcg/dL (250-450)
== END 2017-02-04 15:57 | disposition home or self-care (01) | DRG 684 ==
LOC: ED 11:33 → 4A 23:36
PROVIDERS: ADMIT Internal Medicine; ATTEND Internal Medicine
PROC: 4A02XM4 Measurement of Cardiac Total Activity, External Approach (ICD-10-PCS; principal; 2017-02-01)
DX: N17.0 Acute kidney failure with tubular necrosis (principal); R07.9 Chest pain, unspecified; D64.9 Anemia, unspecified; G43.909 Migraine, unspecified, not intractable, without status migrainosus; G44.89 Other headache syndrome; Z88.8 Allergy status to other drugs, medicaments and biological substances; Z83.3 Family history of diabetes mellitus; Z82.49 Family history of ischemic heart disease and other diseases of the circulatory system
CPT/HCPCS: 36415; 71010; 76770; 78452; 78582; 80048; 80061; 81001; 82232; 82248; 82550; 82570; 82607; 82728; 82747; 83010; 83550; 83615; 83970; 84100; 84165; 84166; 84300; 84484; 85007; 85025; 85379; 85810; 86038; 86334; 86880; 89050; 93005; 93010; 93017; 93306; 93970; 96374; 96375; A9502; A9540; A9558; J1644; J2270; J2405; J2785; J7030

== ENCOUNTER 2017-07-31 23:13 | Emergency (ER) | payer OTHER ==
[2017-07-31 23:53] VITALS: BP 135/95
[2017-08-01] MEDS ORDERED: BENADRYL IV ONE (05:44)
[2017-08-01] MEDS ORDERED: MORPHINE IV ONE (05:44)
[2017-08-01] MEDS ORDERED: NACL 0.9% 1000 ML 1,000 ML IV ONE (05:46)
--- NOTE | 2017-08-01 05:59 | Emergency Department Report ---
<EVENS HORTA - Last Filed: 08/01/17 08:51> ED General Adult HPI - General Chief complaint: Skin Rash Stated complaint: HAND PAIN Time Seen by Provider: 08/01/17 04:17 - Related Data Previous Rx's Medication Instructions Recorded Last Taken Type oxyCODONE /ACETAMINOPHEN [Percocet 1 tab PO Q6HR PRN #20 tablet 02/04/17 Unknown Rx 5/325 mg] Prednisone [predniSONE 10 mg 10 mg PO .TAPER #1 tab.ds.pk 08/01/17 Unknown Rx (6-Day Pack, 21 Tabs)] traMADol [Ultram] 50 mg PO Q6HR PRN #12 tablet 08/01/17 Unknown Rx Allergies Allergy/AdvReac Type Severity Reaction Status Date / Time naproxen [From Naprosyn] Allergy Hives Verified 02/01/17 11:46 ED Review of Systems ROS: Stated complaint: HAND PAIN Other details as noted in HPI ED Past Medical Hx - Medications Home Medications: Home Medications Medication Instructions Recorded Confirmed Last Taken Type oxyCODONE /ACETAMINOPHEN [Percocet 1 tab PO Q6HR PRN #20 tablet 02/04/17 Unknown Rx 5/325 mg] Prednisone [predniSONE 10 mg 10 mg PO .TAPER #1 tab.ds.pk 08/01/17 Unknown Rx (6-Day Pack, 21 Tabs)] traMADol [Ultram] 50 mg PO Q6HR PRN #12 tablet 08/01/17 Unknown Rx ED Course Vital Signs 07/31/17 07/31/17 08/01/17 23:49 23:52 00:35 Temperature 98.6 F 98.6 F Pulse Rate 94 H 101 H 101 H Respiratory 18 20 Rate Blood Pressure 135/95 135/95 Blood Pressure 135/95 [Right] O2 Sat by Pulse 100 100 100 Oximetry - Reevaluation(s) Reevaluation #2: 08/01/17 08:52 Patient is stable with no signs of distress - Consultations Consultation #1: 08/01/17 08:52 Dr. Frey has been consulted about patient history, physical exam, and possible admission but stated patient does not meet admission criteria. Consultation #2: 08/01/17 08:54 Dr. Miller (hospitalist) which he assessed patient and was called back which he stated he wants patient discharged with prednisone Consultation #3: 08/01/17 08:56 Dr. Harrison was consulted about the plan of care and agrees to the discharge plan of care with follow-up. ED Medical Decision Making - Lab Data Result diagrams: 08/01/17 05:49 08/01/17 05:49 - Medical Decision Making This is a 37-year-old female that presents with rash. Patient was seen by Patrick Headley NP and was signed out to me for possible admission. Hospitalist Dr. Frey Has been consulted which stated patient does not meet admission criteria and is more outpatient treatment.Dr. Miller the night hospitalist which he examined and seen the patient himself was called on his cell and stated he wants the patient to be discharged with prednisone and follow-up with primary care doctor. Patient was notified of the plan of care and agrees to plan of care. Patient was instructed Follow-up with a primary care doctor in 24 hours or if symptoms worsen and continue return to emergency room as soon as possible. At time time of discharge, the patient does not seem toxic or ill in appearance. No acute signs of distress noted. Patient agrees to discharge treatment plan of care. No further questions noted by the patient. Critical care attestation.: If time is entered above; I have spent that time in minutes in the direct care of this critically ill patient, excluding procedure time. ED Disposition Clinical Impression: Urticarial rash, Arthralgia of multiple sites, bilateral Disposition: DC-01 TO HOME OR SELFCARE Is pt being admited?: No Does the pt Need Aspirin: No Condition: Stable Instructions: Prednisone (By mouth), Tramadol (By mouth) Additional Instructions: Follow-up with a primary care doctor in 24 hours or if symptoms worsen and continue return to emergency room as soon as possible. Do not operate any machinery while taking Ultram due to drowsiness Prescriptions: Prednisone [predniSONE 10 mg (6-Day Pack, 21 Tabs)] 10 mg PO .TAPER #1 tab.ds.pk traMADol [Ultram] 50 mg PO Q6HR PRN #12 tablet PRN Reason: Pain Referrals: DENISHA NAZARIO MD [Primary Care Provider] - 3-5 Days RAISA DOWELL MD [Staff Physician] - 3-5 Days [facility] [place] - 3-5 Days PRIMARY CARE, [Referring] - 24 Hours Forms: Work/School Release Form(ED) <PATRICK HEADLEY - Last Filed: 08/02/17 08:57> ED General Adult HPI - General Source: patient Mode of arrival: Ambulatory Limitations: No Limitations - History of Present Illness Initial comments: Patient reports that she came tonight with rash and hives on her face, chest, neck, arms and legs that are very painful and she reports that her joints are very painful and is getting worse. She said it started 2 months ago one red spot and she put blue Star ointment on it and it went when away. Then it came back in multiple areas and she was given an antibiotic and told that it was food allergy from Dr. Ingram who is a primary care doctor. She said E also gave her steroid which helped and it went away but they came back. Patient came in tonight because she said her right arm from the wrist down through the right hand is swollen and red and pain is 7 out of 10. Denies any injury to area. Denies any nausea or vomiting. Denies any abdominal pain. Denies any fever or chills. She said this is been recurrent and she's been seen by her primary care physician 2 times. Same problem without any stimulation of why this keeps happening to her. She also says she was admitted at this hospital January 2017 for cardiac workup and was told that she had some abnormalities in her kidneys but she says she is not sure what her diagnosis was. She says she stayed for a week and they discharged her and she still did not understand why she was here. He said they told her that her heart was fine. Patient said that Dr. Tay nasim blood work on her and said everything was normal except that she has a low vitamin D. He is unaware of what type of blood work was drawn. MD Complaint: Painful skin rash -: month(s) (painful skin rash) Location: neck, chest, back, left, right, upper extremity, lower extremity Severity scale (0 -10): 10 Quality: burning, aching Consistency: constant Improves with: none Worsens with: movement, other (touch) Associated Symptoms: denies: confusion, chest pain, cough, diaphoresis, fever/ chills, headaches, loss of appetite, malaise, nausea/vomiting, rash, seizure, shortness of breath, syncope, weakness Treatments Prior to Arrival: other (Tx by primary care with antibiotic and steroid for food allergies) ED Review of Systems Comment: All other systems reviewed and negative Constitutional: no symptoms reported Eyes: denies: eye pain, eye discharge ENT: denies: ear pain, throat pain, congestion Respiratory: no symptoms reported Cardiovascular: denies: chest pain, palpitations, dyspnea on exertion, orthopnea , edema, syncope, paroxysmal nocturnal dyspnea Gastrointestinal: denies: abdominal pain, nausea, vomiting, diarrhea, constipation Genitourinary: denies: urgency, dysuria, frequency, hematuria, discharge, abnormal menses, dyspareunia Musculoskeletal: joint swelling, arthralgia. denies: back pain, myalgia Skin: rash, other (painful skin and joints) Neurological: denies: headache, weakness, numbness, paresthesias, confusion, abnormal gait, vertigo ED Past Medical Hx - Past Medical History Previous Medical History?: Yes Hx Congestive Heart Failure: No Hx Diabetes: No Hx Asthma: No Hx COPD: No Additional medical history: Previously admitted this year for unknown medical problem and stayed in the middle for 1 week - Surgical History Past Surgical History?: Yes Additional Surgical History: etopic. Breast biopsy- benign - Social History Smoking Status: Never Smoker Substance Use Type: None ED Physical Exam - General Limitations: No Limitations General appearance: alert, in no apparent distress - Head Head exam: Present: atraumatic, normocephalic, normal inspection - Eye Eye exam: Present: normal appearance, PERRL, EOMI. Absent: periorbital swelling Pupils: Present: normal accommodation - ENT ENT exam: Present: normal exam, normal orophraynx, mucous membranes moist, TM's normal bilaterally, normal external ear exam - Neck Neck exam: Present: normal inspection, full ROM, other (No C-spine tenderness). Absent: tenderness, meningismus, lymphadenopathy, thyromegaly - Respiratory Respiratory exam: Present: normal lung sounds bilaterally. Absent: respiratory distress, wheezes, chest wall tenderness, accessory muscle use - Cardiovascular Cardiovascular Exam: Present: regular rate, normal rhythm, normal heart sounds. Absent: systolic murmur, diastolic murmur - GI/Abdominal GI/Abdominal exam: Present: soft, normal bowel sounds. Absent: distended, tenderness, guarding, rebound, rigid, organomegaly, mass, bruit, pulsatile mass , hernia - Extremities Exam Extremities exam: Present: normal inspection, full ROM (all extremity especially right upper extremity. Patient with swelling and redness to right dorsal aspect of hand extending in beyond the wrist. She has tenderness to palpate to her skin surface at rash site. He is also having pain with active range of motion to joints. Mild swelling noted to knee joint.), tenderness, normal capillary refill, joint swelling (knee joints), other (no neurovascular compromise. +2 Pulses all extremities.). Absent: pedal edema, calf tenderness - Back Exam Back exam: Present: normal inspection, full ROM, other ( ambulates without any difficulties). Absent: tenderness, CVA tenderness (R), CVA tenderness (L), muscle spasm, paraspinal tenderness, vertebral tenderness, rash noted - Neurological Exam Neurological exam: Present: alert, oriented X3, normal gait, reflexes normal. Absent: motor sensory deficit - Psychiatric Psychiatric exam: Present: normal affect, normal mood - Skin Skin exam: Present: warm, dry, rash, erythema, urticaria - Expanded Skin Exam Expanded Type of lesion: Present: rash Distribution of rash: generalized Description of rash: Present: tenderness, erythematous, swelling, urticarial. Absent: vesicular, blisters, discharge, fluctuant, indurated ED Course - Reevaluation(s) Reevaluation #1: 08/01/17 07:00 Patient given Benadryl 50 mg IV, Solu-Medrol 1 nausea and 25 mg IV, morphine 4 mg IV along with IV fluid 1 L normal saline that is still infusing. Patient had multiple labs drawn and sent and results are pending. i spoke with Dr. Harrison regarding patient's presentation and clinical findings. Dr. Rangel saw patient and agrees the patient needs to be worked up and possibly admission. Stable, pain control and she says she feels a little better. ED Medical Decision Making - Lab Data Result diagrams: 08/01/17 05:49 08/01/17 05:49 Lab Results 08/01/17 08/01/17 08/01/17 Range/Units 05:49 05:49 05:49 WBC 5.6 (4.5-11.0) K/mm3 RBC 3.35 L (3.65-5.03) M/mm3 Hgb 9.6 L (10.1-14.3) gm/dl Hct 29.5 L (30.3-42.9) % MCV 88 (79-97) fl MCH 29 (28-32) pg MCHC 32 (30-34) % RDW 14.0 (13.2-15.2) % Plt Count 276 (140-440) K/mm3 Lymph % (Auto) 13.6 (13.4-35.0) % [place] % (Auto) 6.7 (0.0-7.3) % Eos % (Auto) 2.3 (0.0-4.3) % Baso % (Auto) 0.3 (0.0-1.8) % Lymph # 0.8 L (1.2-5.4) K/mm3 [place] # 0.4 (0.0-0.8) K/mm3 Eos # 0.1 (0.0-0.4) K/mm3 Baso # 0.0 (0.0-0.1) K/mm3 Seg Neutrophils % 77.1 H (40.0-70.0) % Seg Neutrophils # 4.3 (1.8-7.7) K/mm3 Sodium 140 (137-145) mmol/L Potassium 4.2 (3.6-5.0) mmol/L Chloride 100.9 (98-107) mmol/L Carbon Dioxide 24 (22-30) mmol/L Anion Gap 19 mmol/L BUN 16 (7-17) mg/dL Creatinine 0.9 (0.7-1.2) mg/dL Estimated GFR > 60 ml/min BUN/Creatinine Ratio 18 % Glucose 82 (65-100) mg/dL Calcium 8.9 (8.4-10.2) mg/dL Total Bilirubin 0.40 (0.1-1.2) mg/dL AST 34 (5-40) units/L ALT 36 (7-56) units/L Alkaline Phosphatase 52 (35-129) units/L C-Reactive Protein 0.80 (0.00-1.30) mg/dL Total Protein 6.7 (6.3-8.2) g/dL Albumin 3.5 L (3.9-5) g/dL Albumin/Globulin Ratio 1.1 % HCG, Qual Negative (Negative) Rheumatoid Factor (0-13) IU/ml 08/01/17 Range/Units 06:02 WBC (4.5-11.0) K/mm3 RBC (3.65-5.03) M/mm3 Hgb (10.1-14.3) gm/dl Hct (30.3-42.9) % MCV (79-97) fl MCH (28-32) pg MCHC (30-34) % RDW (13.2-15.2) % Plt Count (140-440) K/mm3 Lymph % (Auto) (13.4-35.0) % [place] % (Auto) (0.0-7.3) % Eos % (Auto) (0.0-4.3) % Baso % (Auto) (0.0-1.8) % Lymph # (1.2-5.4) K/mm3 [place] # (0.0-0.8) K/mm3 Eos # (0.0-0.4) K/mm3 Baso # (0.0-0.1) K/mm3 Seg Neutrophils % (40.0-70.0) % Seg Neutrophils # (1.8-7.7) K/mm3 Sodium (137-145) mmol/L Potassium (3.6-5.0) mmol/L Chloride (98-107) mmol/L Carbon Dioxide (22-30) mmol/L Anion Gap mmol/L BUN (7-17) mg/dL Creatinine (0.7-1.2) mg/dL Estimated GFR ml/min BUN/Creatinine Ratio % Glucose (65-100) mg/dL Calcium (8.4-10.2) mg/dL Total Bilirubin (0.1-1.2) mg/dL AST (5-40) units/L ALT (7-56) units/L Alkaline Phosphatase (35-129) units/L C-Reactive Protein (0.00-1.30) mg/dL Total Protein (6.3-8.2) g/dL Albumin (3.9-5) g/dL Albumin/Globulin Ratio % HCG, Qual (Negative) Rheumatoid Factor < 10 (0-13) IU/ml Lab Results 08/01/17 08/01/17 08/01/17 Range/Units 05:49 05:49 05:49 WBC 5.6 (4.5-11.0) K/mm3 RBC 3.35 L (3.65-5.03) M/mm3 Hgb 9.6 L (10.1-14.3) gm/dl Hct 29.5 L (30.3-42.9) % MCV 88 (79-97) fl MCH 29 (28-32) pg MCHC 32 (30-34) % RDW 14.0 (13.2-15.2) % Plt Count 276 (140-440) K/mm3 Lymph % (Auto) 13.6 (13.4-35.0) % [place] % (Auto) 6.7 (0.0-7.3) % Eos % (Auto) 2.3 (0.0-4.3) % Baso % (Auto) 0.3 (0.0-1.8) % Lymph # 0.8 L (1.2-5.4) K/mm3 [place] # 0.4 (0.0-0.8) K/mm3 Eos # 0.1 (0.0-0.4) K/mm3 Baso # 0.0 (0.0-0.1) K/mm3 Seg Neutrophils % 77.1 H (40.0-70.0) % Seg Neutrophils # 4.3 (1.8-7.7) K/mm3 ESR 33 (0-20) mm/Hr Sodium 140 (137-145) mmol/L Potassium 4.2 (3.6-5.0) mmol/L Chloride 100.9 (98-107) mmol/L Carbon Dioxide 24 (22-30) mmol/L Anion Gap 19 mmol/L BUN 16 (7-17) mg/dL Creatinine 0.9 (0.7-1.2) mg/dL Estimated GFR > 60 ml/min BUN/Creatinine Ratio 18 % Glucose 82 (65-100) mg/dL Calcium 8.9 (8.4-10.2) mg/dL Total Bilirubin 0.40 (0.1-1.2) mg/dL AST 34 (5-40) units/L ALT 36 (7-56) units/L Alkaline Phosphatase 52 (35-129) units/L C-Reactive Protein 0.80 (0.00-1.30) mg/dL Total Protein 6.7 (6.3-8.2) g/dL Albumin 3.5 L (3.9-5) g/dL Albumin/Globulin Ratio 1.1 % HCG, Qual Negative (Negative) Urine Color (Yellow) Urine Turbidity (Clear) Urine pH (5.0-7.0) Ur Specific [place] (1.003-1.030) Urine Protein (Negative) mg/dL Urine Glucose (UA) (Negative) mg/dL Urine Ketones (Negative) mg/dL Urine Blood (Negative) Urine Nitrite (Negative) Urine Bilirubin (Negative) Urine Urobilinogen (<2.0) mg/dL Ur Leukocyte Esterase (Negative) Urine WBC (Auto) (0.0-6.0) /HPF Urine RBC (Auto) (0.0-6.0) /HPF U Epithel Cells (Auto) (0-13.0) /HPF Urine Bacteria (Auto) (Negative) /HPF Urine Mucus /HPF Rheumatoid Factor (0-13) IU/ml 08/01/17 08/01/17 Range/Units 06:02 08:28 WBC (4.5-11.0) K/mm3 RBC (3.65-5.03) M/mm3 Hgb (10.1-14.3) gm/dl Hct (30.3-42.9) % MCV (79-97) fl MCH (28-32) pg MCHC (30-34) % RDW (13.2-15.2) % Plt Count (140-440) K/mm3 Lymph % (Auto) (13.4-35.0) % [place] % (Auto) (0.0-7.3) % Eos % (Auto) (0.0-4.3) % Baso % (Auto) (0.0-1.8) % Lymph # (1.2-5.4) K/mm3 [place] # (0.0-0.8) K/mm3 Eos # (0.0-0.4) K/mm3 Baso # (0.0-0.1) K/mm3 Seg Neutrophils % (40.0-70.0) % Seg Neutrophils # (1.8-7.7) K/mm3 ESR (0-20) mm/Hr Sodium (137-145) mmol/L Potassium (3.6-5.0) mmol/L Chloride (98-107) mmol/L Carbon Dioxide (22-30) mmol/L Anion Gap mmol/L BUN (7-17) mg/dL Creatinine (0.7-1.2) mg/dL Estimated GFR ml/min BUN/Creatinine Ratio % Glucose (65-100) mg/dL Calcium (8.4-10.2) mg/dL Total Bilirubin (0.1-1.2) mg/dL AST (5-40) units/L ALT (7-56) units/L Alkaline Phosphatase (35-129) units/L C-Reactive Protein (0.00-1.30) mg/dL Total Protein (6.3-8.2) g/dL Albumin (3.9-5) g/dL Albumin/Globulin Ratio % HCG, Qual (Negative) Urine Color Yellow (Yellow) Urine Turbidity Clear (Clear) Urine pH 7.0 (5.0-7.0) Ur Specific [place] 1.005 (1.003-1.030) Urine Protein 30 mg/dl (Negative) mg/dL Urine Glucose (UA) Neg (Negative) mg/dL Urine Ketones Neg (Negative) mg/dL Urine Blood Lg (Negative) Urine Nitrite Neg (Negative) Urine Bilirubin Neg (Negative) Urine Urobilinogen < 2.0 (<2.0) mg/dL Ur Leukocyte Esterase Neg (Negative) Urine WBC (Auto) 3.0 (0.0-6.0) /HPF Urine RBC (Auto) 7.0 (0.0-6.0) /HPF U Epithel Cells (Auto) 5.0 (0-13.0) /HPF Urine Bacteria (Auto) 1+ (Negative) /HPF Urine Mucus Few /HPF Rheumatoid Factor < 10 (0-13) IU/ml . ZINA titer and pattern IFA pending results lupus anticoagulation study pending results DNA (ds) antibody pending. ED Disposition Is pt being admited?: No Does the pt Need Aspirin: No
[2017-08-01 06:08] LABS: Basophils % (Auto) 0.3 % (0.0-1.8); Eosinophils % (Auto) 2.3 % (0.0-4.3); Hematocrit 29.5 % (30.3-42.9); Hemoglobin 9.6 gm/dl (10.1-14.3); Mean Corpuscular HGB Conc 32 % (30-34); Mean Corpuscular Hemoglobin 29 pg (28-32); Mean Corpuscular Volume 88 fl (79-97); Platelet Count 276 K/mm3 (140-440); Red Blood Count 3.35 M/mm3 (3.65-5.03); White Blood Count 5.6 K/mm3 (4.5-11.0)
[2017-08-01 06:41] LABS: Alanine Aminotransferase 36 units/L (7-56); Albumin 3.5 g/dL (3.9-5); Albumin/Globulin Ratio 1.1 %; Alkaline Phosphatase 52 units/L (35-129); Anion Gap 19 mmol/L; BUN/Creatinine Ratio 18; Blood Urea Nitrogen 16 mg/dL (7-17); Calcium 8.9 mg/dL (8.4-10.2); Carbon Dioxide 24 mmol/L (22-30); Chloride 100.9 mmol/L (98-107); Glucose 82 mg/dL (65-100); Potassium 4.2 mmol/L (3.6-5.0); Sodium 140 mmol/L (137-145); Total Protein 6.7 g/dL (6.3-8.2)
[2017-08-01 07:36] LABS: Erythrocyte Sedimentation Rate 33 mm/Hr (0-20)
[2017-08-01 08:48] LABS: Bacteria,Urine 1+ /HPF (Negative); Bilirubin,Urine NEG (Negative); Blood,Urine LG (Negative); Ketones,Urine NEG (Negative); Leukocyte Esterase,Urine NEG (Negative); Mucus,Urine FEW /HPF; Nitrite,Urine NEG (Negative); Urobilinogen,Urine < 2.0 mg/dL (<2.0)
== END 2017-08-01 09:19 | disposition home or self-care (01) ==
LOC: ED 23:13
DX: L50.9 Urticaria, unspecified (principal); M25.50 Pain in unspecified joint; Z88.6 Allergy status to analgesic agent
CPT/HCPCS: 36415; 80053; 81001; 84703; 85025; 85613; 85652; 86038; 86140; 86225; 86618; 96361; 96374; 96375; 99283; J1200; J2270; J2930; J7030

== ENCOUNTER 2017-11-12 18:22 | Emergency (ER) | payer OTHER ==
[2017-11-12] MEDS ORDERED: MORPHINE IV ONE (19:35)
[2017-11-12] MEDS ORDERED: ROCEPHIN/NS 1 GM/50 ML 1 GM/50 ML BAG IV ONE (19:35)
[2017-11-12] MEDS ORDERED: NACL 0.9% 1000 ML 1,000 ML IV ONE ×2 (19:38→21:50)
--- NOTE | 2017-11-12 19:42 | Emergency Department Report ---
HPI - General Chief Complaint: Allergic Reaction Time Seen by Provider: 11/12/17 19:35 - HPI HPI: 37-year-old [place] female comes in stating that she is been seen multiple times here for the same thing. Patient reports that she has broken out in hives last night and has not been able to go away. Patient reports that she took Claritin this morning without much relief. Patient also told him that she took rigidity which has not helped either. Patient states she does not know what she is allergic to. She complains that her throat feels like his clothes and eyes are swollen her lip is swollen and she is breaking out with hives all over. Patient has allergy to naproxen. She currently takes no medication and only past medical history appears that she has some type of allergic reaction. ED Past Medical Hx - Past Medical History Hx Congestive Heart Failure: No Hx Diabetes: No Hx Asthma: No Hx COPD: No Additional medical history: Previously admitted this year for unknown medical problem and stayed in the middle for 1 week - Surgical History Additional Surgical History: etopic. Breast biopsy- benign - Social History Smoking Status: Never Smoker Substance Use Type: None - Medications Home Medications: Home Medications Medication Instructions Recorded Confirmed Last Taken Type oxyCODONE /ACETAMINOPHEN [Percocet 1 tab PO Q6HR PRN #20 tablet 02/04/17 Unknown Rx 5/325 mg] Prednisone [predniSONE 10 mg 10 mg PO .TAPER #1 tab.ds.pk 08/01/17 Unknown Rx (6-Day Pack, 21 Tabs)] traMADol [Ultram] 50 mg PO Q6HR PRN #12 tablet 08/01/17 Unknown Rx EPINEPHrine [Epipen] 0.3 mg IJ ONCE PRN #1 auto.injct 11/13/17 Unknown Rx predniSONE [Deltasone] 20 mg PO QDAY 5 Days #5 tab 11/13/17 Unknown Rx ED Review of Systems ROS: Stated complaint: ALLERGIC REACTION Other details as noted in HPI Constitutional: denies: chills, fever Eyes: denies: eye pain, eye discharge, vision change ENT: throat pain, other Respiratory: denies: cough, shortness of breath, wheezing Cardiovascular: chest pain (chest discomfort) Endocrine: no symptoms reported Gastrointestinal: denies: abdominal pain, nausea, diarrhea Genitourinary: denies: urgency, dysuria, discharge Musculoskeletal: denies: back pain, joint swelling, arthralgia Skin: rash, pruritus Neurological: denies: headache, weakness, paresthesias Psychiatric: denies: anxiety, depression Hematological/Lymphatic: denies: easy bleeding, easy bruising Physical Exam - Physical Exam Vital Signs: Vital Signs 11/12/17 18:39 Temperature 97.6 F Pulse Rate 110 H Respiratory 18 Rate Blood Pressure 140/84 [Left] O2 Sat by Pulse 99 Oximetry Physical Exam: GENERAL APPEARANCE: Well developed, well nourished, in no acute distress. SKIN: Inspection of the skin reveals multiple urticaria chest bilateral arms abdomen back legs. HEENT: The sclerae were anicteric and conjunctivae were pink and moist. Extraocular movements were intact and pupils were equal, round, and reactive to light with normal accommodation. The oral mucosa, hard and soft palate, tongue and posterior pharynx were normal. Tongue does not appear to be swollen oropharynx patent able to talk in complete sentences top lip edematous NECK: Supple and symmetric. There was no thyroid enlargement, and no tenderness , or masses were felt. CHEST: Normal AP diameter and normal contour without any kyphoscoliosis. LUNGS: Auscultation of the lungs revealed normal breath sounds without any other adventitious sounds or rubs. CARDIOVASCULAR: There was a regular rate and rhythm without any murmurs, gallops , rubs. ABDOMEN: Soft and nontender with normal bowel sounds. LYMPH NODES: No lymphadenopathy was appreciated in the neck, axillae MUSCULOSKELETAL: There was no tenderness or effusions noted. Muscle strength and tone were normal. EXTREMITIES: No cyanosis, clubbing or edema. NEUROLOGIC: Alert and oriented x 3. Normal affect. Gait was normal. Normal deep tendon reflexes with no pathological reflexes. Sensation to touch was normal. ED Course Vital Signs 11/12/17 18:39 Temperature 97.6 F Pulse Rate 110 H Respiratory 18 Rate Blood Pressure 140/84 [Left] O2 Sat by Pulse 99 Oximetry - Reevaluation(s) Reevaluation #1: 11/13/17 02:18 Patient reports she feels much better after having the epi 11/13/17 02:27 Patient has no tongue swelling airways patent breath sounds are clear there is no stridor no wheezing on examination. ED Medical Decision Making - Medical Decision Making Patient's been evaluated by this provider fast track. IV was placed bolus of normal saline, Pepcid 20 mg IV, Benadryl 80 mg IV, start her Medrol 125 mg IV. Was given. Discussed with Dr. Barrientos instructed to give her epi 0.3 mg IM. Discussed with patient in length that she is very important for her to follow up with an bindery machine setter/set up operator or primary care provider that can do in allergy testing. I discussed patient in depth that her allergies are getting worse without knowing exactly what she is allergic to she's putting herself at [facility] for . I discussed with patient that I would discharge her with and a prescription for epi and place her on prednisone 20 mg by mouth daily 5 days. I discussed the patient I will refer her to an bindery machine setter/set up operator as well as a primary care provider. Patient verbalized understanding. Critical care attestation.: If time is entered above; I have spent that time in minutes in the direct care of this critically ill patient, excluding procedure time. ED Disposition Clinical Impression: Anaphylactic reaction Qualifiers: Encounter type: initial encounter Qualified Code(s): T78.2XXA - Anaphylactic shock, unspecified, initial encounter Allergic reaction Qualifiers: Encounter type: initial encounter Qualified Code(s): T78.40XA - Allergy, unspecified, initial encounter Disposition: DC-01 TO HOME OR SELFCARE Is pt being admited?: No Does the pt Need Aspirin: No Condition: Stable Instructions: Anaphylaxis (ED), Urticaria (ED), Food Allergy (ED) Additional Instructions: Please follow up with an bindery machine setter/set up operator or a primary care provider and speak with him in regards to allergy testing. Prescriptions: EPINEPHrine [Epipen] 0.3 mg IJ ONCE PRN #1 auto.injct PRN Reason: Anaphylaxis predniSONE [Deltasone] 20 mg PO QDAY 5 Days #5 tab Referrals: DENISHA NAZARIO MD [Primary Care Provider] - 3-5 Days REYNOLD QURESHI MD [Referring] - 3-5 Days MARIA DEL CARMEN PIERSON MD [Referring] - 3-5 Days Forms: Work/School Release Form(ED)
[2017-11-12] MEDS ORDERED: cefTRIAXone 1 GM in NACL 0.9% 20 ML IV ONE (20:00)
[2017-11-12] MEDS ORDERED: BENADRYL IV ONE (21:50)
[2017-11-12] MEDS ORDERED: PEPCID IV ONE (21:50)
[2017-11-12] MEDS ORDERED: TYLENOL PO ONE (22:39)
[2017-11-12] MEDS ORDERED: LIDOCAINE VISCOUS 2% PO ONE (22:40)
[2017-11-12] MEDS ORDERED: LIDOCAINE VISCOUS 2% ONE (22:41)
[2017-11-12] MEDS ORDERED: TYLENOL ONE (22:41)
[2017-11-13] MEDS ORDERED: ADRENALINE P/F IM ONE (00:31)
[2017-11-13 02:52] VITALS: BP 97/59
== END 2017-11-13 02:50 | disposition home or self-care (01) ==
LOC: ED 18:22
DX: T78.2XXA Anaphylactic shock, unspecified, initial encounter (principal); T78.40XA Allergy, unspecified, initial encounter; Z88.6 Allergy status to analgesic agent; X58.XXXA Exposure to other specified factors, initial encounter; Y93.89 Activity, other specified; Y99.8 Other external cause status; Y92.89 Other specified places as the place of occurrence of the external cause
CPT/HCPCS: 96361; 96372; 96374; 96375; 99282; J0171; J1200; J2930; J7030; J0696

== ENCOUNTER 2018-02-07 21:12 | Emergency (ER) | payer SELFPAY ==
[2018-02-07] MEDS ORDERED: ASPIRIN ONE (22:13)
[2018-02-07] MEDS ORDERED: ASPIRIN PO ONE (22:14)
[2018-02-07 23:37] LABS: Basophils % (Auto) 0.4 % (0.0-1.8); Eosinophils # (Auto) 0.1 K/mm3 (0.0-0.4); Eosinophils % (Auto) 1.5 % (0.0-4.3); Hematocrit 33.3 % (30.3-42.9); Hemoglobin 10.9 gm/dl (10.1-14.3); Lymphocytes # (Auto) 0.9 K/mm3 (1.2-5.4); Lymphocytes % (Auto) 21.4 % (13.4-35.0); Mean Corpuscular HGB Conc 33 % (30-34); Mean Corpuscular Hemoglobin 29 pg (28-32); Mean Corpuscular Volume 89 fl (79-97); Monocytes # (Auto) 0.3 K/mm3 (0.0-0.8); Monocytes % (Auto) 7.2 % (0.0-7.3); Platelet Count 292 K/mm3 (140-440); Red Blood Count 3.75 M/mm3 (3.65-5.03); Red Cell Distribution Width 14.2 % (13.2-15.2)
[2018-02-08] LABS: BUN/Creatinine Ratio 14; Blood Urea Nitrogen 13 mg/dL (7-17); Calcium 8.5 mg/dL (8.4-10.2); Hemolysis Index 8
[2018-02-08] MEDS ORDERED: LIDOCAINE VISCOUS 2% PO ONE (01:56)
[2018-02-08] MEDS ORDERED: PEPCID PO ONE (01:56)
[2018-02-08] MEDS ORDERED: TYLENOL PO ONE (01:56)
--- NOTE | 2018-02-08 01:56 | Emergency Department Report ---
ED Chest Pain HPI - General Chief Complaint: Chest Pain Stated Complaint: SORE THROAT Time Seen by Provider: 02/08/18 01:46 Source: patient, RN notes reviewed, old records reviewed Mode of arrival: Ambulatory Limitations: No Limitations - History of Present Illness Initial Comments: This is a 37-year-old female who is unknown to this provider previously. She reports her primary care doctor is Dr. Tay. She reports that she is not , denies giving within the past 6 weeks, does not take oral contraceptives, denies cocaine use, denies recent aspirin use, and denies DVT, pulmonary embolus risk factors. The patient presents to the ER with a complaint of chest wall pain which has been present for the past 24-36 hours. The pain is achy, increases with palpation and does not radiates to the back, arms or neck. There is no vomiting, diaphoresis, or shortness of breath with physical exertion. There is no leg pain, no leg swelling, recent road trips or airplane chest or recent hospitalizations. Patient was admitted to this hospital last year for chest pain, had a negative nuclear medicine study for pulmonary embolus, and also had an unremarkable cardiac nuclear stress test. The patient also complains of postnasal drip with sore throat, denies cough, denies fever, denies dysphagia. MD Complaint: chest pain -: Gradual, days(s) Pain Location: other (chest wall) Pain Radiation: none Quality: tightness, heaviness Consistency: intermittent Improves With: rest Worsens With: palpation re: denies: nausea, vomting, diaphoresis, dyspnea, sense of impending doom Other Symptoms: denies: cough, fever, syncope, rash, acid taste in mouth, leg swelling, palpitations, burping Treatments Prior to Arrival: none Aspirin use within the Past 7 Days: (0) No - Related Data On Oral Contraceptives: No Previous Rx's Medication Instructions Recorded Last Taken Type oxyCODONE /ACETAMINOPHEN [Percocet 1 tab PO Q6HR PRN #20 tablet 02/04/17 Unknown Rx 5/325 mg] Prednisone [predniSONE 10 mg 10 mg PO .TAPER #1 tab.ds.pk 08/01/17 Unknown Rx (6-Day Pack, 21 Tabs)] traMADol [Ultram] 50 mg PO Q6HR PRN #12 tablet 08/01/17 Unknown Rx EPINEPHrine [Epipen] 0.3 mg IJ ONCE PRN #1 auto.injct 11/13/17 Unknown Rx predniSONE [Deltasone] 20 mg PO QDAY 5 Days #5 tab 11/13/17 Unknown Rx Acetaminophen [Tylenol Arthritis] 650 mg PO Q6HR PRN #30 tablet.er 02/08/18 Unknown Rx Allergies Allergy/AdvReac Type Severity Reaction Status Date / Time naproxen [From Naprosyn] Allergy Hives Verified 02/01/17 11:46 Heart Score - HEART Score History: Slightly suspicious EKG: Normal Age: < 45 Risk factors: No known risk factors Troponin: < normal limit HEART Score: 0 - Critical Actions Critical Actions: 0-3 pts:0.9-1.7%risk of adverse cardiac event.Candidate for discharge ED Review of Systems ROS: Stated complaint: SORE THROAT Other details as noted in HPI Constitutional: denies: fever Eyes: denies: vision change ENT: throat pain Respiratory: denies: cough Cardiovascular: chest pain Gastrointestinal: as per HPI. denies: nausea, vomiting Genitourinary: denies: dysuria Musculoskeletal: denies: back pain Skin: denies: lesions Neurological: denies: weakness Psychiatric: denies: anxiety ED Past Medical Hx - Past Medical History Hx Congestive Heart Failure: No Hx Diabetes: No Hx Asthma: No Hx COPD: No Additional medical history: Previously admitted this year for unknown medical problem and stayed in the middle for 1 week - Surgical History Additional Surgical History: etopic. Breast biopsy- benign - Social History Smoking Status: Never Smoker - Medications Home Medications: Home Medications Medication Instructions Recorded Confirmed Last Taken Type oxyCODONE /ACETAMINOPHEN [Percocet 1 tab PO Q6HR PRN #20 tablet 02/04/17 Unknown Rx 5/325 mg] Prednisone [predniSONE 10 mg 10 mg PO .TAPER #1 tab.ds.pk 08/01/17 Unknown Rx (6-Day Pack, 21 Tabs)] traMADol [Ultram] 50 mg PO Q6HR PRN #12 tablet 08/01/17 Unknown Rx EPINEPHrine [Epipen] 0.3 mg IJ ONCE PRN #1 auto.injct 11/13/17 Unknown Rx predniSONE [Deltasone] 20 mg PO QDAY 5 Days #5 tab 11/13/17 Unknown Rx Acetaminophen [Tylenol Arthritis] 650 mg PO Q6HR PRN #30 tablet.er 02/08/18 Unknown Rx ED Physical Exam - General Limitations: No Limitations General appearance: alert, in no apparent distress - Head Head exam: Present: atraumatic, normocephalic - Eye Eye exam: Present: normal appearance, EOMI. Absent: nystagmus - ENT ENT exam: Present: normal exam, normal orophraynx, mucous membranes moist, normal external ear exam, other (patient is speaking in full sentences. There is no stridor. There is no pain with lateral manipulation of the trachea. There is no adenopathy.) - Neck Neck exam: Present: normal inspection, full ROM. Absent: tenderness, meningismus, lymphadenopathy - Respiratory Respiratory exam: Present: normal lung sounds bilaterally, chest wall tenderness. Absent: respiratory distress, wheezes, rales, rhonchi, stridor, decreased breath sounds - Cardiovascular Cardiovascular Exam: Present: regular rate, normal rhythm, normal heart sounds. Absent: bradycardia, tachycardia, irregular rhythm, systolic murmur, diastolic murmur, rubs, gallop - GI/Abdominal GI/Abdominal exam: Present: soft, normal bowel sounds. Absent: distended, tenderness, guarding, rebound, rigid, pulsatile mass - Extremities Exam Extremities exam: Present: normal inspection, full ROM, normal capillary refill , other (there is no palpable cord. There is a negative Homans sign. 2+ pulses noted in the bilateral upper, lower extremities.). Absent: tenderness, pedal edema, joint swelling, calf tenderness - Back Exam Back exam: Present: normal inspection, full ROM. Absent: tenderness, CVA tenderness (R), paraspinal tenderness, vertebral tenderness - Neurological Exam Neurological exam: Present: alert, oriented X3, CN II-XII intact, normal gait, other (Extraocular movements intact. Tongue midline. No facial droop. Facial sensation intact to light touch in the V1, V2, V3 distribution bilaterally. 5 and 5 strength in 4 extremities.. Sensation is intact to light touch in 4 extremities.). Absent: motor sensory deficit - Psychiatric Psychiatric exam: Present: normal affect, normal mood - Skin Skin exam: Present: warm, dry, intact, normal color. Absent: rash ED Course Vital Signs 02/07/18 02/08/18 02/08/18 22:10 00:53 01:00 Temperature 98.2 F Pulse Rate 85 78 77 Respiratory 11 L 18 Rate Blood Pressure 135/85 139/85 O2 Sat by Pulse 98 100 99 Oximetry 02/08/18 02/08/18 02/08/18 01:05 01:06 01:16 Temperature 98.4 F Pulse Rate 75 Respiratory 14 12 Rate Blood Pressure 139/85 O2 Sat by Pulse 100 99 Oximetry 02/08/18 02/08/18 02:08 02:26 Temperature Pulse Rate 74 Respiratory 20 Rate Blood Pressure O2 Sat by Pulse Oximetry ALEXANDRA score - Alexandra Score Age > 65: (0) No Aspirin use within the Past 7 Days: (0) No 3 or more CAD Risk Factors: (0) No 2 or more Angina events in past 24 hrs: (0) No Known CAD with more than 50% Stenosis: (0) No Elevated Cardiac Markers: (0) No ST Deviation Greater than 0.5mm: (0) No ALEXANDRA Score: 0 ED Medical Decision Making - Lab Data Result diagrams: 02/07/18 23:03 02/07/18 23:03 - EKG Data -: EKG Interpreted by Me EKG shows normal: sinus rhythm, axis, intervals, QRS complexes, ST-T waves - EKG Data When compared to previous EKG there are: no significant change Interpretation: no acute changes 02/08/18 02:31 EKG #1 demonstrates normal sinus, 75 bpm, normal axis, normal intervals, not a STEMI, biphasic T-wave in V2, appears unchanged compared to prior EKG from 02/02. EKG #2 appears to be unchanged. - Radiology Data Radiology results: image reviewed interpreted by me: x-ray the chest, interpreted by me, no acute disease - Medical Decision Making Differential diagnosis, including not limited to: Pneumonia, costochondritis, acute coronary syndrome, postnasal drip Assessment and plan: 37-year-old female with reproducible chest wall pain for over 24 hours. She is afebrile with reassuring vital signs, with no pulmonary embolus or DVT risk factors, low risk by well's criteria, no risk by ALEXANDRA score , low risk by heart score, perc negative Patient had an essentially negative nuclear stress test within the past year. In terms of the patient's sore throat, she describes a postnasal drip, and is low risk by the Centor score, and based on history and physical did not feel like she requires further evaluation for group A strep. When I walked into the room to evaluate the patient she was sleeping and she was in no acute distress. The patient was medicated appropriately and symptomatically, endorse improvement of her symptoms, and she is medically suitable to follow-up as an outpatient at this time. Based on the objective data, the patient is at low risk for major adverse cardiac event. Has equal pulses in the upper, lower extremities, not especially hypertensive with a normal mediastinum on x-ray, therefore do not favor aortic disease. Critical care attestation.: If time is entered above; I have spent that time in minutes in the direct care of this critically ill patient, excluding procedure time. ED Disposition Clinical Impression: Chest wall pain Disposition: TO HOME OR SELFCARE Is pt being admited?: No Does the pt Need Aspirin: No Condition: Good Instructions: Chest Pain (ED), Costochondritis (ED) Additional Instructions: Take the pain medication as needed/directed. Follow-up with the primary care doctor or airport traffic controller within the next 3-5 days. Use [id number] sea salt spray or Flonase or salt water gargles for sore throat. Return to the ER right away with new pain, worsening pain, migration of pain, fevers, chills, lethargy , irritability, projectile vomiting, change in mental status, confusion, inability to tolerate liquid feeds. Referrals: PRIMARY CARE, [Primary Care Provider] - 3-5 Days [facility] [Provider Group] - 3-5 Days [facility] [Provider Group] - 3-5 Days
[2018-02-08 02:50] VITALS: BP 125/84
--- NOTE | 2018-02-08 02:51 | XRay Report ---
FINAL REPORT EXAM: XR CHEST ROUTINE 2V HISTORY: chest wall pain COMPARISON: None available. FINDINGS:: Frontal and lateral views of the chest obtained. Cardiac silhouette is within normal limits. No focal consolidation or effusion. No pneumothorax. Visualized bony thorax is grossly intact. IMPRESSION:: No acute findings.
== END 2018-02-08 02:53 | disposition home or self-care (01) ==
LOC: ED 21:12
DX: R07.89 Other chest pain (principal); J02.9 Acute pharyngitis, unspecified
CPT/HCPCS: 36415; 71046; 80048; 84484; 85025; 93005; 93010; 99284

== ENCOUNTER 2018-05-11 19:01 | Emergency (ER) | payer SELFPAY ==
[2018-05-11] MEDS ORDERED: DECADRON IM ONE (22:40)
[2018-05-11] MEDS ORDERED: ULTRAM PO ONE (22:43)
--- NOTE | 2018-05-11 23:30 | Emergency Department Report ---
ED Rash HPI - HPI Chief Complaint: Allergic Reaction Stated Complaint: BROKE OUT IN HIVES Time Seen by Provider: 05/11/18 22:39 Suspected Cause: Unknown Rash Symptoms: Yes Itching, Yes Breathing Difficulties, No Facial Swelling, No Tongue/Oral Swelling, No Choking Sensation, No Wheezing/Dyspnea, No Peeling, No Blistering, No Fever, No Lightheaded, No Malaise, No Myalgias Other History: 38-year-old female comes in reports that she broke out in a half 2-3 days stating that this is something going on over a year. Patient has been taken hydralazine 50 mg times one today around 2:30 to 3 PM, patient also has a prescription for ranitidine 150 mg twice a day and loratadine 10 mg twice a day which she took yesterday and has taken all 3 today. Patient also complains of neck pain and hard to swallow patient is talking in complete sentences no dyspnea on exertion noted and patient is in no apparent distress at this time. Patient denies any fever or chills and nausea no vomiting. She reports that she feels like her throat closes when she lays down at night. This has been going on for 3-4 days. She does have a primary care doctor Dr. Juan Jose Middleton. She denies any sick contact. Does report that she is allergic to eggs and shrimp. But denies eating any of those substances. Patient also complains of chest pain and tenderness. ED Review of Systems ROS: Stated complaint: BROKE OUT IN HIVES Other details as noted in HPI Constitutional: denies: chills, fever ENT: throat pain Respiratory: shortness of breath. denies: cough, wheezing Cardiovascular: denies: chest pain, palpitations Endocrine: no symptoms reported Gastrointestinal: denies: abdominal pain, nausea, diarrhea Genitourinary: denies: urgency, dysuria, discharge Skin: rash ED Past Medical Hx - Past Medical History Previous Medical History?: No Hx Congestive Heart Failure: No Hx Diabetes: No Hx Asthma: No Hx COPD: No Additional medical history: Previously admitted this year for unknown medical problem and stayed in the middle for 1 week - Surgical History Past Surgical History?: Yes Additional Surgical History: etopic. Breast biopsy- benign - Social History Smoking Status: Never Smoker Substance Use Type: None - Medications Home Medications: Home Medications Medication Instructions Recorded Confirmed Last Taken Type oxyCODONE /ACETAMINOPHEN [Percocet 1 tab PO Q6HR PRN #20 tablet 02/04/17 Unknown Rx 5/325 mg] Prednisone [predniSONE 10 mg 10 mg PO .TAPER #1 tab.ds.pk 08/01/17 Unknown Rx (6-Day Pack, 21 Tabs)] traMADol [Ultram] 50 mg PO Q6HR PRN #12 tablet 08/01/17 Unknown Rx EPINEPHrine [Epipen] 0.3 mg IJ ONCE PRN #1 auto.injct 11/13/17 Unknown Rx predniSONE [Deltasone] 20 mg PO QDAY 5 Days #5 tab 11/13/17 Unknown Rx Acetaminophen [Tylenol Arthritis] 650 mg PO Q6HR PRN #30 tablet.er 02/08/18 Unknown Rx Rash Exam - Exam General: Vital signs noted. No distress. Alert and acting appropriately. Patient is in no distress speaking in full sentences no swelling appreciated from the tongue or neck. Throat is patent. She is nontoxic in appearance. Lungs: Yes Good Air Exchange, No Wheezes, No Ronchi, No Stridor, No Cough, No Labored Respirations, No Retractions, No Use of Accessory Muscles, No Other Abnormal Lung Sounds Heart: Yes Regular, No Murmur Skin: Yes Urticarial Rash Other: Positive: Abdomen Normal, Neurologic Normal, Musculoskeletal Normal ED Course Vital Signs 05/11/18 19:11 Temperature 98.8 F Pulse Rate 96 H Respiratory 16 Rate Blood Pressure 125/87 O2 Sat by Pulse 99 Oximetry ED Medical Decision Making - Medical Decision Making Patient has been evaluated by this provider in fast track. Patient is no acute distress, speaking in full sentences, no swelling to the throat airway is patent chest is clear to auscultation Patient is given dexamethasone 10 mg IM and,tramadol for her pain in her throat. Review of patient's chart shows that she has had elevated troponin as well as elevated d-dimer in February 04 2017. I will order basic labs CBC CMP d-dimer and troponin patient is having chest pain and we'll refer her over to the main ER. Patient be discharged home on a prednisone pack she is to continue with her prescriptions of loratadine, ranitidine, Atarax. Patients to follow up with her primary care provider Critical care attestation.: If time is entered above; I have spent that time in minutes in the direct care of this critically ill patient, excluding procedure time. ED Disposition Condition: Stable Referrals: PRIMARY CARE, [Primary Care Provider] - 3-5 Days
--- NOTE | 2018-05-12 00:05 | Emergency Department Report ---
ED Chest Pain HPI - General Chief Complaint: Allergic Reaction Stated Complaint: BROKE OUT IN HIVES Time Seen by Provider: 05/11/18 22:39 Source: patient Mode of arrival: Ambulatory Limitations: No Limitations - History of Present Illness Initial Comments: 38-year-old female comes in reports that she broke out in a half 2-3 days stating that this is something going on over a year. Patient has been taken hydralazine 50 mg times one today around 2:30 to 3 PM, patient also has a prescription for ranitidine 150 mg twice a day and loratadine 10 mg twice a day which she took yesterday and has taken all 3 today. Patient also complains of neck pain and hard to swallow patient is talking in complete sentences no dyspnea on exertion noted and patient is in no apparent distress at this time. Patient denies any fever or chills and nausea no vomiting. She reports that she feels like her throat closes when she lays down at night. This has been going on for 3-4 days. She does have a primary care doctor Dr. Juan Jose Middleton. She denies any sick contact. Does report that she is allergic to eggs and shrimp. But denies eating any of those substances. Patient also complains of chest pain and tenderness 9 out of 10. Family history: Maternal and paternal grandmothers had strokes and heart attacks. Mother has diabetes and hypertension, father has diabetes Patient denies smoking, denies drug use and cocaine use. Patient reports she is allergic to aspirin. -: days(s) (2-3) Onset: during rest Pain Location: other (upper right and left chest) Severity scale (0 -10): 9 (chest pain) Consistency: intermittent Improves With: nothing Worsens With: nothing re: denies: nausea, vomting, diaphoresis, dyspnea, sense of impending doom Other Symptoms: rash. denies: cough, fever Treatments Prior to Arrival: none Aspirin use within the Past 7 Days: (0) No (patient's allergic to aspirin) - Related Data Previous Rx's Medication Instructions Recorded Last Taken Type oxyCODONE /ACETAMINOPHEN [Percocet 1 tab PO Q6HR PRN #20 tablet 02/04/17 Unknown Rx 5/325 mg] Prednisone [predniSONE 10 mg 10 mg PO .TAPER #1 tab.ds.pk 08/01/17 Unknown Rx (6-Day Pack, 21 Tabs)] traMADol [Ultram] 50 mg PO Q6HR PRN #12 tablet 08/01/17 Unknown Rx EPINEPHrine [Epipen] 0.3 mg IJ ONCE PRN #1 auto.injct 11/13/17 Unknown Rx predniSONE [Deltasone] 20 mg PO QDAY 5 Days #5 tab 11/13/17 Unknown Rx Acetaminophen [Tylenol Arthritis] 650 mg PO Q6HR PRN #30 tablet.er 02/08/18 Unknown Rx Allergies Allergy/AdvReac Type Severity Reaction Status Date / Time naproxen [From Naprosyn] Allergy Hives Verified 02/01/17 11:46 Heart Score - HEART Score History: Slightly suspicious EKG: Normal Age: < 45 Risk factors: No known risk factors Troponin: < normal limit HEART Score: 0 ED Review of Systems ROS: Stated complaint: BROKE OUT IN HIVES Other details as noted in HPI Constitutional: denies: chills, fever ENT: throat pain Respiratory: shortness of breath. denies: cough, wheezing Cardiovascular: denies: chest pain, palpitations Endocrine: no symptoms reported Gastrointestinal: denies: abdominal pain, nausea, diarrhea Genitourinary: denies: urgency, dysuria, discharge Skin: rash ED Past Medical Hx - Past Medical History Previous Medical History?: No Hx Congestive Heart Failure: No Hx Diabetes: No Hx Asthma: No Hx COPD: No Additional medical history: Previously admitted this year for unknown medical problem and stayed in the middle for 1 week - Surgical History Past Surgical History?: Yes Additional Surgical History: etopic. Breast biopsy- benign - Social History Smoking Status: Never Smoker Substance Use Type: None - Medications Home Medications: Home Medications Medication Instructions Recorded Confirmed Last Taken Type oxyCODONE /ACETAMINOPHEN [Percocet 1 tab PO Q6HR PRN #20 tablet 02/04/17 Unknown Rx 5/325 mg] Prednisone [predniSONE 10 mg 10 mg PO .TAPER #1 tab.ds.pk 08/01/17 Unknown Rx (6-Day Pack, 21 Tabs)] traMADol [Ultram] 50 mg PO Q6HR PRN #12 tablet 08/01/17 Unknown Rx EPINEPHrine [Epipen] 0.3 mg IJ ONCE PRN #1 auto.injct 11/13/17 Unknown Rx predniSONE [Deltasone] 20 mg PO QDAY 5 Days #5 tab 11/13/17 Unknown Rx Acetaminophen [Tylenol Arthritis] 650 mg PO Q6HR PRN #30 tablet.er 02/08/18 Unknown Rx ED Physical Exam - General Limitations: No Limitations General appearance: alert, in no apparent distress - Head Head exam: Present: atraumatic, normocephalic - Eye Eye exam: Present: PERRL, EOMI - ENT ENT exam: Present: mucous membranes moist - Neck Neck exam: Present: normal inspection, full ROM. Absent: tenderness, meningismus - Respiratory Respiratory exam: Present: normal lung sounds bilaterally. Absent: respiratory distress - Cardiovascular Cardiovascular Exam: Present: regular rate, normal rhythm. Absent: systolic murmur, diastolic murmur, rubs, gallop - GI/Abdominal GI/Abdominal exam: Present: soft, normal bowel sounds. Absent: distended, tenderness - Neurological Exam Neurological exam: Present: alert, oriented X3 - Expanded Neurological Exam Expanded Patient oriented to: Present: person, place, time Cranial nerves: EOM's Intact: Normal, Gag Reflex: Normal, Tongue Deviation: Normal, Nystagmus: Normal, Facial Sensation: Normal, Facial Palsy with Forehead Movement: Normal, Facial Palsy without Forehead Movement: Normal Cerebellar function: Finger to Nose: Normal, Heel to Boyle: Normal, Romberg: Normal Upper motor neuron: Garry Neglect: Normal, Pronator Drift: Normal, Sensory Extinction: Normal Sensory exam: Upper Extremity Light Touch: Normal, Upper Extremity Pin Prick: Normal, Upper Extremity Temperature: Normal, UE 2 Point Discrimination: Normal, Lower Extremity Light Touch: Normal Motor strength exam: RUE: 4, LUE: 4, RLE: 4, LLE: 4 Best Eye Response ([place]): (4) open spontaneously Best Motor Response ([place]): (6) obeys commands Best Verbal Response ([place]): (5) oriented [place] Total: 15 - Psychiatric Psychiatric exam: Present: normal affect, normal mood - Skin Skin exam: Present: warm, dry, intact, normal color. Absent: rash ED Course Vital Signs 05/11/18 05/12/18 05/12/18 19:11 01:12 01:15 Temperature 98.8 F Pulse Rate 96 H 69 Respiratory 16 14 11 L Rate Blood Pressure 125/87 129/87 O2 Sat by Pulse 99 95 Oximetry 05/12/18 05/12/18 05/12/18 01:31 01:45 02:01 Temperature Pulse Rate 76 61 66 Respiratory 14 11 L 11 L Rate Blood Pressure 129/87 129/87 130/83 O2 Sat by Pulse 100 97 99 Oximetry 05/12/18 05/12/18 05/12/18 02:15 02:31 02:48 Temperature Pulse Rate 72 66 86 Respiratory 12 13 Rate Blood Pressure 130/83 130/83 130/83 O2 Sat by Pulse 98 96 84 Oximetry 05/12/18 05/12/18 05/12/18 03:19 03:31 03:45 Temperature Pulse Rate 81 67 Respiratory 17 13 Rate Blood Pressure 130/83 139/79 139/79 O2 Sat by Pulse 99 100 97 Oximetry TEO score - Teo Score Age > 65: (0) No Aspirin use within the Past 7 Days: (0) No 3 or more CAD Risk Factors: (0) No 2 or more Angina events in past 24 hrs: (0) No Known CAD with more than 50% Stenosis: (0) No Elevated Cardiac Markers: (0) No ST Deviation Greater than 0.5mm: (0) No TEO Score: 0 ED Medical Decision Making - Lab Data Result diagrams: 05/11/18 23:43 05/11/18 23:43 - Radiology Data Radiology results: report reviewed FINAL REPORT PROCEDURE: CT ANGIO CHEST TECHNIQUE: Computerized tomographic angiography of the chest was performed after the IV injection of iodinated nonionic contrast including image processing. The image data was postprocessed using 2-dimensional multiplanar reformatted (MPR) and 3-dimensional (MIP and/or volume rendered) techniques. HISTORY: cp dyspnea COMPARISON: No prior studies are available for comparison. FINDINGS: Heart and pericardium: Normal. Thoracic aorta: Normal. Pulmonary vasculature: Normal. Lymph nodes: No enlarged thoracic lymph nodes. Lungs: Normal. Pleural space: No effusion, thickening, or pneumothorax. Musculoskeletal structures: No significant abnormality. Upper abdominal structures: No significant abnormality. IMPRESSION: There is no evidence of pulmonary arterial emboli. The lungs are clear without infiltrate, effusion or pneumothorax. Transcribed By: YANET Dictated By: ANALIA FAM MD Electronically Authenticated By: ANALIA FAM MD Signed Date/Time: 05/12/18 0341 - Medical Decision Making Patient has been evaluated but this provider in fast track. Patient had EKG that shows no changes from the last EKG on 01/2018 Patient was instructed to follow up with cardiology at [facility] her last visit She needs to also follow up with hematology for her mild neutropenia Patient has a heart score 0 Patient had a chest CT, chest x-ray rule out PE. Patient has had neg troponin. Patient has nonspecific elevation of her d-dimer Patient has no lower leg edema or complaints. Based on objective data the patient is at low risk for major adverse cardiac risk. She has equal pulses in upper and lower extremities patient is not hypertensive x-rays within normal limits normal mediastinum therefore do not favor aortic disease. Patient is medically suitable for follow-up outpatient follow-up. Critical care attestation.: If time is entered above; I have spent that time in minutes in the direct care of this critically ill patient, excluding procedure time. ED Disposition Clinical Impression: Elevated d-dimer, Hives Neutropenia Qualifiers: Neutropenia type: unspecified Qualified Code(s): D70.9 - Neutropenia, unspecified Disposition: DC-01 TO HOME OR SELFCARE Is pt being admited?: No Does the pt Need Aspirin: No Condition: Stable Instructions: Costochondritis (ED), Chest Pain (ED), Urticaria (ED) Additional Instructions: Continue with her medication for allergies and allergic reaction. It is very important for you to follow up with hematology and cardiology I have listed their information below for you to follow up with. Referrals: PRIMARY MD CARLA [Primary Care Provider] - 3-5 Days [facility] [Provider Group] - 3-5 Days AGUSTINA AVITIA MD [Staff Physician] - 3-5 Days Forms: Work/School Release Form(ED)
[2018-05-12 00:10] LABS: Basophils # (Auto) 0.1 K/mm3 (0.0-0.1); Basophils % (Auto) 1.9 % (0.0-1.8); Eosinophils # (Auto) 0.1 K/mm3 (0.0-0.4); Eosinophils % (Auto) 3.1 % (0.0-4.3); Hematocrit 30.5 % (30.3-42.9); Hemoglobin 10.2 gm/dl (10.1-14.3); Lymphocytes % (Auto) 35.2 % (13.4-35.0); Mean Corpuscular HGB Conc 34 % (30-34); Mean Corpuscular Hemoglobin 29 pg (28-32); Mean Corpuscular Volume 87 fl (79-97); Monocytes # (Auto) 0.2 K/mm3 (0.0-0.8); Monocytes % (Auto) 7.8 % (0.0-7.3); Platelet Count 314 K/mm3 (140-440); Red Blood Count 3.49 M/mm3 (3.65-5.03); Red Cell Distribution Width 13.6 % (13.2-15.2)
[2018-05-12 00:24] LABS: Alanine Aminotransferase 15 units/L (7-56); Albumin 3.3 g/dL (3.9-5); BUN/Creatinine Ratio 13; Blood Urea Nitrogen 12 mg/dL (7-17); Calcium 8.5 mg/dL (8.4-10.2); Hemolysis Index 3
--- NOTE | 2018-05-12 00:39 | XRay Report ---
FINAL REPORT PROCEDURE: XR CHEST ROUTINE 2V TECHNIQUE: PA and lateral chest radiographs were obtained. CPT 05322 HISTORY: chest pain dyspnea COMPARISON: No prior studies are available for comparison. FINDINGS: Heart: Normal. Mediastinum/Vessels: Normal. Lungs/Pleural space: Normal. Bony thorax: No acute osseous abnormality. Other: IMPRESSION: Normal examination.
[2018-05-12] MEDS ORDERED: NACL 0.9% 1000 ML 1,000 ML IV ONE (00:41)
--- NOTE | 2018-05-12 03:42 | Cat Scan Report ---
FINAL REPORT PROCEDURE: CT ANGIO CHEST TECHNIQUE: Computerized tomographic angiography of the chest was performed after the IV injection of iodinated nonionic contrast including image processing. The image data was postprocessed using 2-dimensional multiplanar reformatted (MPR) and 3-dimensional (MIP and/or volume rendered) techniques. HISTORY: cp dyspnea COMPARISON: No prior studies are available for comparison. FINDINGS: Heart and pericardium: Normal. Thoracic aorta: Normal. Pulmonary vasculature: Normal. Lymph nodes: No enlarged thoracic lymph nodes. Lungs: Normal. Pleural space: No effusion, thickening, or pneumothorax. Musculoskeletal structures: No significant abnormality. Upper abdominal structures: No significant abnormality. IMPRESSION: There is no evidence of pulmonary arterial emboli. The lungs are clear without infiltrate, effusion or pneumothorax.
[2018-05-12 05:47] VITALS: BP 127/75
[2018-05-12 05:58] LABS: INR 0.95 (0.87-1.13)
[2018-05-12 05:59] LABS: Partial Thromboplastin Time 23.6 Sec. (24.2-36.6)
== END 2018-05-12 06:08 | disposition home or self-care (01) ==
LOC: ED 19:01
DX: L50.9 Urticaria, unspecified (principal); D70.9 Neutropenia, unspecified; R94.4 Abnormal results of kidney function studies; Z88.6 Allergy status to analgesic agent; Z91.013 Allergy to seafood; Z91.012 Allergy to eggs
CPT/HCPCS: 36415; 71046; 71275; 80053; 84484; 84703; 85025; 85379; 85610; 85730; 93005; 93010; 96372; 99284; J1100; J7030; Q9967

== ENCOUNTER 2018-05-24 14:05 | Emergency (ER) | payer OTHER ==
[2018-05-24] MEDS ORDERED: LIDOCAINE VISCOUS 2% PO ONE (16:27)
[2018-05-24] MEDS ORDERED: TYLENOL PO ONE (16:28)
--- NOTE | 2018-05-24 16:32 | Emergency Department Report ---
HPI - General Chief Complaint: Sore Throat Time Seen by Provider: 05/24/18 16:21 - HPI HPI: [place] 26 The patient is a 36-year-old female presenting with chief complaint of sore throat and body aches. Patient states she's had body aches for 2 weeks yesterday's developed a sore throat. Patient denies cough or rhinorrhea. Patient denies fever or sick contacts. Patient denies nausea or vomiting. The patient gives her pain a score of 10/10 Location: [See above] Duration: [See above] Quality: Soreness Severity: 10/10 Modifying factors: [see above] Context: [see above] Mode of transportation: The patient drove herself to the emergency department and there are no visitors present ED Past Medical Hx - Past Medical History Additional medical history: Previously admitted this year for unknown medical problem and stayed in the middle for 1 week - Surgical History Past Surgical History?: Yes Additional Surgical History: etopic. Breast biopsy- benign - Family History Family history: no significant - Social History Smoking Status: Never Smoker Substance Use Type: None (denies illicit drug use), Alcohol (occasional) - Medications Home Medications: Home Medications Medication Instructions Recorded Confirmed Last Taken Type oxyCODONE /ACETAMINOPHEN [Percocet 1 tab PO Q6HR PRN #20 tablet 02/04/17 Unknown Rx 5/325 mg] Prednisone [predniSONE 10 mg 10 mg PO .TAPER #1 tab.ds.pk 08/01/17 Unknown Rx (6-Day Pack, 21 Tabs)] traMADol [Ultram] 50 mg PO Q6HR PRN #12 tablet 08/01/17 Unknown Rx EPINEPHrine [Epipen] 0.3 mg IJ ONCE PRN #1 auto.injct 11/13/17 Unknown Rx predniSONE [Deltasone] 20 mg PO QDAY 5 Days #5 tab 11/13/17 Unknown Rx Acetaminophen [Tylenol Arthritis] 650 mg PO Q6HR PRN #30 tablet.er 02/08/18 Unknown Rx Amoxicillin [Amoxicillin TAB] 875 mg PO BID #20 tablet 05/24/18 Unknown Rx HYDROcodone/APAP 5-325 [[place] 1 - 2 each PO Q6HR PRN #20 tablet 05/24/18 Unknown Rx 5/325] ED Review of Systems ROS: Stated complaint: THROAT PAIN/CHEST PAINS Other details as noted in HPI Constitutional: denies: fever Eyes: denies: eye pain ENT: throat pain Respiratory: denies: cough Cardiovascular: denies: chest pain Endocrine: no symptoms reported Gastrointestinal: denies: nausea, vomiting Genitourinary: denies: dysuria Musculoskeletal: myalgia Neurological: denies: headache Physical Exam - Physical Exam Vital Signs: Vital Signs 05/24/18 14:22 Temperature 100.1 F H Pulse Rate 112 H Respiratory 16 Rate Blood Pressure 96/63 O2 Sat by Pulse 99 Oximetry Physical Exam: GENERAL: The patient is well-developed well-nourished female lying on stretcher not appearing to be in acute distress. [] HEENT: Normocephalic. Atraumatic. Extraocular motions are intact. Patient has moist mucous membranes. Tonsillar crypt on the right, uvula midline. There is no trismus or hot potato voice NECK: Supple. No meningitic signs are noted. Trachea midline. No stridor CHEST/LUNGS: Clear to auscultation. There is no respiratory distress noted. HEART/CARDIOVASCULAR: Regular. There is no tachycardia. There is no gallop rub or murmur. ABDOMEN: Abdomen is soft, nontender. Patient has normal bowel sounds. There is no abdominal distention. SKIN: There is no rash. There is no edema. There is no diaphoresis. NEURO: The patient is awake, alert, and oriented. The patient is cooperative. The patient has normal speech MUSCULOSKELETAL: There is no evidence of acute injury. ED Course Vital Signs 05/24/18 14:22 Temperature 100.1 F H Pulse Rate 112 H Respiratory 16 Rate Blood Pressure 96/63 O2 Sat by Pulse 99 Oximetry ED Medical Decision Making - Radiology Data Radiology results: report reviewed (lateral soft tissue neck x-ray), image reviewed (lateral soft tissue neck x-ray) interpreted by me: Lateral soft tissue neck x-ray-no evidence of epiglottitis [facility] [address] [place] [address] XRay Report Signed Patient: ELSI LEO MR#: [id number] : 1980 Acct:[id number] Age/Sex: 38 / F ADM Date: 05/24/18 Loc: ED Attending Dr: Ordering Physician: ALEXY CHILEL MD Date of Service: 10/11/18 Procedure(s): XR neck soft tissue Accession Number(s): [id number] cc: ALEXY CHILEL MD Fluoro Time In Minutes: FINAL REPORT EXAM: XR NECK SOFT TISSUE HISTORY: sore throat TECHNIQUE: AP and lateral views of the neck soft tissues PRIORS: None. FINDINGS: The tracheal air shadow is patent throughout. No prevertebral soft tissue swelling is seen. The epiglottis is normal. The adenoids and palatine tonsils are normal. Bony structures are unremarkable. IMPRESSION: Negative views of the soft tissues of the neck. Transcribed By: [facility] Dictated By: JAI MOSHER MD Electronically Authenticated By: JAI MOSHER MD Signed Date/Time: 05/24/181721 DD/ 21 TD/TT: 05/24/181721 - Differential Diagnosis pharyngitis, tonsillitis, retropharyngeal abscess Critical care attestation.: If time is entered above; I have spent that time in minutes in the direct care of this critically ill patient, excluding procedure time. ED Disposition Clinical Impression: Acute pharyngitis, Sore throat Disposition: - TO HOME OR SELFCARE Is pt being admited?: No Does the pt Need Aspirin: No Condition: Stable Instructions: Pharyngitis (ED) Additional Instructions: Return to the emergency department immediately should you develop worsening symptoms, fever, inability to tolerate food or liquid or any other concerns. Prescriptions: Amoxicillin [Amoxicillin TAB] 875 mg PO BID #20 tablet HYDROcodone/APAP 5-325 [[place] 5/325] 1 - 2 each PO Q6HR PRN #20 tablet PRN Reason: Pain Referrals: PRIMARY CAREMD [Primary Care Provider] - 3-5 Days IOANA CABRERA MD [Staff Physician] - 3-5 Days (Dr. Cabrera is an ear nose and throat doctor (lacquer dipping machine operator). Please follow up with him for further evaluation) Time of Disposition: 17:29
[2018-05-24 17:05] VITALS: BP 111/73
--- NOTE | 2018-05-24 17:23 | XRay Report ---
FINAL REPORT EXAM: XR NECK SOFT TISSUE HISTORY: sore throat TECHNIQUE: AP and lateral views of the neck soft tissues PRIORS: None. FINDINGS: The tracheal air shadow is patent throughout. No prevertebral soft tissue swelling is seen. The epiglottis is normal. The adenoids and palatine tonsils are normal. Bony structures are unremarkable. IMPRESSION: Negative views of the soft tissues of the neck.
== END 2018-05-24 17:36 | disposition home or self-care (01) ==
LOC: ED 14:05
DX: J02.9 Acute pharyngitis, unspecified (principal); Z88.6 Allergy status to analgesic agent
CPT/HCPCS: 70360; 99283

== ENCOUNTER 2018-09-05 21:51 | Emergency (ER) | payer OTHER ==
[2018-09-05] MEDS ORDERED: TYLENOL PO ONE (22:46)
[2018-09-05] MEDS ORDERED: TYLENOL ONE (22:49)
--- NOTE | 2018-09-06 00:55 | Emergency Department Report ---
ED General Adult HPI - General Chief complaint: Headache Stated complaint: LT ARM PAIN/NUMBNESS/NAUSEA Time Seen by Provider: 09/06/18 00:52 Source: patient Mode of arrival: Ambulatory Limitations: No Limitations - History of Present Illness Initial comments: 38 y.o. female with history of migraine presents with complaint of headache worsening. Patient denies any vomiting. Patient states that she's had a intermittent headache for the past 7 days. Patient complains of pain from her migraine going to the back of her neck as well. Patient states that she's also had a chest pain with pain radiating to her left arm which began this morning as well. Patient complains of photophobia as well. Patient states that Excedrin is not helping her migraine headache and that she presented here. Patient denies any head trauma. Patient denies any syncope. Severity scale (0 -10): 7 - Related Data Previous Rx's Medication Instructions Recorded Last Taken Type oxyCODONE /ACETAMINOPHEN [Percocet 1 tab PO Q6HR PRN #20 tablet 02/04/17 Unknown Rx 5/325 mg] Prednisone [predniSONE 10 mg 10 mg PO .TAPER #1 tab.ds.pk 08/01/17 Unknown Rx (6-Day Pack, 21 Tabs)] traMADol [Ultram] 50 mg PO Q6HR PRN #12 tablet 08/01/17 Unknown Rx EPINEPHrine [Epipen] 0.3 mg IJ ONCE PRN #1 auto.injct 11/13/17 Unknown Rx predniSONE [Deltasone] 20 mg PO QDAY 5 Days #5 tab 11/13/17 Unknown Rx Acetaminophen [Tylenol Arthritis] 650 mg PO Q6HR PRN #30 tablet.er 02/08/18 Unknown Rx Amoxicillin [Amoxicillin TAB] 875 mg PO BID #20 tablet 05/24/18 Unknown Rx HYDROcodone/APAP 5-325 [[place] 1 - 2 each PO Q6HR PRN #20 tablet 05/24/18 Unknown Rx 5/325] Tramadol HCl [Ultram] 50 mg PO Q8HR #20 tablet 09/06/18 Unknown Rx Allergies Allergy/AdvReac Type Severity Reaction Status Date / Time naproxen [From Naprosyn] Allergy Hives Verified 02/01/17 11:46 shrimp Allergy Swelling Verified 09/05/18 22:28 eggs Allergy Swelling Uncoded 09/05/18 22:28 ED Review of Systems ROS: Stated complaint: LT ARM PAIN/NUMBNESS/NAUSEA Other details as noted in HPI Constitutional: denies: chills, fever Eyes: denies: eye pain, eye discharge, vision change ENT: denies: ear pain, throat pain Respiratory: denies: cough, shortness of breath, wheezing Cardiovascular: denies: chest pain, palpitations Endocrine: no symptoms reported Gastrointestinal: denies: abdominal pain, nausea, diarrhea Genitourinary: denies: urgency, dysuria, discharge Musculoskeletal: arthralgia. denies: back pain, joint swelling Skin: denies: rash, lesions Neurological: headache. denies: weakness, paresthesias Psychiatric: denies: anxiety, depression Hematological/Lymphatic: denies: easy bleeding, easy bruising ED Past Medical Hx - Past Medical History Hx Congestive Heart Failure: No Hx Diabetes: No Hx Asthma: No Hx COPD: No Additional medical history: overnight admission for CP 2017. admission for migraine 01/2017 - Surgical History Past Surgical History?: Yes Additional Surgical History: ectopic. Breast biopsy- benign - Social History Smoking Status: Never Smoker Substance Use Type: None - Medications Home Medications: Home Medications Medication Instructions Recorded Confirmed Last Taken Type oxyCODONE /ACETAMINOPHEN [Percocet 1 tab PO Q6HR PRN #20 tablet 02/04/17 Unknown Rx 5/325 mg] Prednisone [predniSONE 10 mg 10 mg PO .TAPER #1 tab.ds.pk 08/01/17 Unknown Rx (6-Day Pack, 21 Tabs)] traMADol [Ultram] 50 mg PO Q6HR PRN #12 tablet 08/01/17 Unknown Rx EPINEPHrine [Epipen] 0.3 mg IJ ONCE PRN #1 auto.injct 11/13/17 Unknown Rx predniSONE [Deltasone] 20 mg PO QDAY 5 Days #5 tab 11/13/17 Unknown Rx Acetaminophen [Tylenol Arthritis] 650 mg PO Q6HR PRN #30 tablet.er 02/08/18 Unknown Rx Amoxicillin [Amoxicillin TAB] 875 mg PO BID #20 tablet 05/24/18 Unknown Rx HYDROcodone/APAP 5-325 [[place] 1 - 2 each PO Q6HR PRN #20 tablet 05/24/18 Unknown Rx 5/325] Tramadol HCl [Ultram] 50 mg PO Q8HR #20 tablet 09/06/18 Unknown Rx ED Physical Exam - General Limitations: No Limitations General appearance: alert, other (uncomfortable; moderate distress) - Head Head exam: Present: atraumatic, normocephalic - Eye Eye exam: Present: normal appearance - ENT ENT exam: Present: mucous membranes moist - Neck Neck exam: Present: normal inspection - Respiratory Respiratory exam: Present: normal lung sounds bilaterally. Absent: respiratory distress - Cardiovascular Cardiovascular Exam: Present: regular rate, normal rhythm. Absent: systolic murmur, diastolic murmur, rubs, gallop - GI/Abdominal GI/Abdominal exam: Present: soft, normal bowel sounds - Extremities Exam Extremities exam: Present: normal inspection - Back Exam Back exam: Present: normal inspection - Neurological Exam Neurological exam: Present: alert, oriented X3, CN II-XII intact. Absent: motor sensory deficit - Psychiatric Psychiatric exam: Present: normal affect, normal mood - Skin Skin exam: Present: warm, dry, intact, normal color. Absent: rash ED Course Vital Signs 09/05/18 09/05/18 09/06/18 22:32 22:48 00:25 Temperature 98.3 F Pulse Rate 84 Respiratory 18 18 Rate Blood Pressure 131/85 125/82 Blood Pressure [Left] O2 Sat by Pulse 96 98 Oximetry 09/06/18 00:27 Temperature 97.7 F Pulse Rate 65 Respiratory 16 Rate Blood Pressure Blood Pressure 125/82 [Left] O2 Sat by Pulse 98 Oximetry ED Medical Decision Making - Lab Data Result diagrams: 09/06/18 01:32 09/06/18 01:32 - EKG Data EKG shows normal: sinus rhythm Rate: bradycardia - EKG Data When compared to previous EKG there are: no significant change - Medical Decision Making Patient received Tylenol therapy while in the ER as she drove to this facility and had no one to peanut picker her up from this hospital. Patient states that she has an allergy to Naproxen. Patient sleeping comfortably on reassessment and is in no acute distress. Low suspicion for acute cardiopulmonary pathology and patient to be discharged to follow up with PCP. - Differential Diagnosis Intracranial Bleed; anemia; electrolyte abnormality; Critical care attestation.: If time is entered above; I have spent that time in minutes in the direct care of this critically ill patient, excluding procedure time. ED Disposition Clinical Impression: Migraine, Chest pain Disposition: - TO HOME OR SELFCARE Is pt being admited?: No Condition: Stable Instructions: Chest Pain (ED), Migraine Headache (ED) Prescriptions: Tramadol HCl [Ultram] 50 mg PO Q8HR #20 tablet Referrals: BISMARK PÉREZ MD [Primary Care Provider] - 3-5 Days Time of Disposition: 03:34 Print Language: GERMAN
[2018-09-06 01:46] LABS: Basophils % (Auto) 0.5 % (0.0-1.8); Eosinophils # (Auto) 0.1 K/mm3 (0.0-0.4); Hematocrit 31.9 % (30.3-42.9); Hemoglobin 10.3 gm/dl (10.1-14.3); Lymphocytes # (Auto) 0.9 K/mm3 (1.2-5.4); Lymphocytes % (Auto) 22.5 % (13.4-35.0); Mean Corpuscular HGB Conc 33 % (30-34); Mean Corpuscular Volume 87 fl (79-97); Monocytes # (Auto) 0.4 K/mm3 (0.0-0.8); Monocytes % (Auto) 9.2 % (0.0-7.3); Platelet Count 319 K/mm3 (140-440); Red Blood Count 3.65 M/mm3 (3.65-5.03); Red Cell Distribution Width 13.2 % (13.2-15.2)
--- NOTE | 2018-09-06 01:48 | Cat Scan Report ---
FINAL REPORT PROCEDURE: CT HEAD/BRAIN WO CON TECHNIQUE: Computerized tomography of the head was performed without contrast material. HISTORY: atypical migraine COMPARISON: No prior studies are available for comparison. FINDINGS: Skull and scalp: Normal. Paranasal sinuses: Normal. Ventricles and subarachnoid spaces: Normal. Cerebrum: No evidence of hemorrhage, acute infarction or mass . Cerebellum and brainstem: No evidence of hemorrhage, acute infarction or mass. Vasculature: Normal. Comments: None. IMPRESSION: Normal Examination
--- NOTE | 2018-09-06 01:58 | XRay Report ---
FINAL REPORT PROCEDURE: XR CHEST ROUTINE 2V TECHNIQUE: PA and lateral chest radiographs were obtained. CPT 93584 HISTORY: Chest Pain COMPARISON: No prior studies are available for comparison. FINDINGS: Heart: Normal. Mediastinum/Vessels: Normal. Lungs/Pleural space: Normal. Bony thorax: No acute osseous abnormality. Other: IMPRESSION: Normal examination.
[2018-09-06 02:09] LABS: Alanine Aminotransferase 16 units/L (7-56); Albumin 3.3 g/dL (3.9-5); BUN/Creatinine Ratio 12; Blood Urea Nitrogen 11 mg/dL (7-17); Calcium 8.7 mg/dL (8.4-10.2); Hemolysis Index 5
[2018-09-06 03:39] VITALS: BP 122/73
== END 2018-09-06 03:50 | disposition home or self-care (01) ==
LOC: ED 21:51
DX: G43.909 Migraine, unspecified, not intractable, without status migrainosus (principal); R07.89 Other chest pain; Z88.8 Allergy status to other drugs, medicaments and biological substances; Z91.013 Allergy to seafood; Z91.012 Allergy to eggs
CPT/HCPCS: 36415; 70450; 71046; 80053; 84484; 85025; 93005; 93010

== ENCOUNTER 2018-10-14 01:01 | Emergency (ER) | payer OTHER ==
[2018-10-14 01:35] VITALS: BP 132/90
[2018-10-14 01:59] LABS: Basophils % (Auto) 0.6 % (0.0-1.8); Eosinophils # (Auto) 0.1 K/mm3 (0.0-0.4); Eosinophils % (Auto) 3.6 % (0.0-4.3); Hematocrit 32.3 % (30.3-42.9); Hemoglobin 10.5 gm/dl (10.1-14.3); Lymphocytes % (Auto) 26.2 % (13.4-35.0); Mean Corpuscular HGB Conc 33 % (30-34); Mean Corpuscular Volume 87 fl (79-97); Monocytes # (Auto) 0.4 K/mm3 (0.0-0.8); Monocytes % (Auto) 9.6 % (0.0-7.3); Platelet Count 288 K/mm3 (140-440); Red Cell Distribution Width 13.5 % (13.2-15.2)
[2018-10-14 02:13] LABS: BUN/Creatinine Ratio 9; Blood Urea Nitrogen 7 mg/dL (7-17); Calcium 8.5 mg/dL (8.4-10.2); Hemolysis Index 4
[2018-10-14] MEDS ORDERED: TYLENOL PO ONE (02:27)
[2018-10-14] MEDS ORDERED: TYLENOL ONE (02:30)
[2018-10-14] MEDS ORDERED: ULTRAM PO ONE (05:17)
--- NOTE | 2018-10-14 06:39 | Emergency Department Report ---
ED Chest Pain HPI - General Chief Complaint: Chest Pain Stated Complaint: PAIN IN NECK AND ARM ON LT SIDE PULLING IN CHEST Time Seen by Provider: 10/14/18 05:16 Source: patient Mode of arrival: Ambulatory Limitations: No Limitations - History of Present Illness Initial Comments: Patient is a 38-year-old emergency room presents for chest pain left lateral substernal for two days ther is no shortness of breath no nausea vomiting no back pain no diaphoresis no dizziness no lightheadedeness , symptoms are exacerbated by activity s symptyom are relieved by rest. pain is rated at 3/10 a MD Complaint: chest pain Onset/Timin -: days(s) Onset: during rest Pain Location: substernal Pain Radiation: LUE Severity: moderate Severity scale (0 -10): 10 Quality: sharp Consistency: intermittent Improves With: rest Worsens With: exertion Other Symptoms: cough Treatments Prior to Arrival: none Aspirin use within the Past 7 Days: (0) No - Related Data On Oral Contraceptives: No Previous Rx's Medication Instructions Recorded Last Taken Type oxyCODONE /ACETAMINOPHEN [Percocet 1 tab PO Q6HR PRN #20 tablet 02/04/17 Unknown Rx 5/325 mg] Prednisone [predniSONE 10 mg 10 mg PO .TAPER #1 tab.ds.pk 08/01/17 Unknown Rx (6-Day Pack, 21 Tabs)] traMADol [Ultram] 50 mg PO Q6HR PRN #12 tablet 08/01/17 Unknown Rx EPINEPHrine [Epipen] 0.3 mg IJ ONCE PRN #1 auto.injct 11/13/17 Unknown Rx predniSONE [Deltasone] 20 mg PO QDAY 5 Days #5 tab 11/13/17 Unknown Rx Acetaminophen [Tylenol Arthritis] 650 mg PO Q6HR PRN #30 tablet.er 02/08/18 Unknown Rx Amoxicillin [Amoxicillin TAB] 875 mg PO BID #20 tablet 05/24/18 Unknown Rx HYDROcodone/APAP 5-325 [[place] 1 - 2 each PO Q6HR PRN #20 tablet 05/24/18 Unknown Rx 5/325] Tramadol HCl [Ultram] 50 mg PO Q8HR #20 tablet 09/06/18 Unknown Rx Acetaminophen [Tylenol Extra 1,000 mg PO QID PRN #60 tablet 10/14/18 Unknown Rx Strength] Cyclobenzaprine [Flexeril] 10 mg PO TID PRN #30 tablet 10/14/18 Unknown Rx Menthol/Camphor [[place] M[place] 1 applicatio TP QID PRN #1 tube 10/14/18 Unknown Rx Ointment] Allergies Allergy/AdvReac Type Severity Reaction Status Date / Time naproxen [From Naprosyn] Allergy Hives Verified 02/01/17 11:46 shrimp Allergy Swelling Verified 09/05/18 22:28 eggs Allergy Swelling Uncoded 09/05/18 22:28 Heart Score - HEART Score History: Slightly suspicious EKG: Normal Age: < 45 Risk factors: No known risk factors Troponin: < normal limit HEART Score: 0 ED Review of Systems ROS: Stated complaint: PAIN IN NECK AND ARM ON LT SIDE PULLING IN CHEST Other details as noted in HPI Constitutional: denies: chills, fever Eyes: denies: eye pain, eye discharge, vision change ENT: denies: ear pain, throat pain Respiratory: denies: cough, shortness of breath, wheezing Cardiovascular: chest pain. denies: palpitations Endocrine: no symptoms reported Gastrointestinal: denies: abdominal pain, nausea, diarrhea Genitourinary: denies: urgency, dysuria, discharge Musculoskeletal: denies: back pain, joint swelling, arthralgia Skin: denies: rash, lesions Neurological: denies: headache, weakness, paresthesias Psychiatric: denies: anxiety, depression Hematological/Lymphatic: denies: easy bleeding, easy bruising ED Past Medical Hx - Past Medical History Previous Medical History?: Yes Hx Congestive Heart Failure: No Hx Diabetes: No Hx Asthma: No Hx COPD: No Additional medical history: overnight admission for CP 2017. admission for migraine 01/2017 - Surgical History Past Surgical History?: Yes Additional Surgical History: ectopic. Breast biopsy- benign - Social History Smoking Status: Never Smoker Substance Use Type: None - Medications Home Medications: Home Medications Medication Instructions Recorded Confirmed Last Taken Type oxyCODONE /ACETAMINOPHEN [Percocet 1 tab PO Q6HR PRN #20 tablet 02/04/17 Unknown Rx 5/325 mg] Prednisone [predniSONE 10 mg 10 mg PO .TAPER #1 tab.ds.pk 08/01/17 Unknown Rx (6-Day Pack, 21 Tabs)] traMADol [Ultram] 50 mg PO Q6HR PRN #12 tablet 08/01/17 Unknown Rx EPINEPHrine [Epipen] 0.3 mg IJ ONCE PRN #1 auto.injct 11/13/17 Unknown Rx predniSONE [Deltasone] 20 mg PO QDAY 5 Days #5 tab 11/13/17 Unknown Rx Acetaminophen [Tylenol Arthritis] 650 mg PO Q6HR PRN #30 tablet.er 02/08/18 Unk nown Rx Amoxicillin [Amoxicillin TAB] 875 mg PO BID #20 tablet 05/24/18 Unknown Rx HYDROcodone/APAP 5-325 [[place] 1 - 2 each PO Q6HR PRN #20 tablet 05/24/18 Unknown Rx 5/325] Tramadol HCl [Ultram] 50 mg PO Q8HR #20 tablet 09/06/18 Unknown Rx Acetaminophen [Tylenol Extra 1,000 mg PO QID PRN #60 tablet 10/14/18 Unknown Rx Strength] Cyclobenzaprine [Flexeril] 10 mg PO TID PRN #30 tablet 10/14/18 Unknown Rx Menthol/Camphor [[place] 1 applicatio TP QID PRN #1 tube 10/14/18 Unknown Rx Ointment] ED Physical Exam - General Limitations: No Limitations General appearance: alert, in no apparent distress - Head Head exam: Present: atraumatic, normocephalic - Eye Eye exam: Present: normal appearance, PERRL, EOMI Pupils: Present: normal accommodation - ENT ENT exam: Present: normal orophraynx, mucous membranes moist, TM's normal bilaterally, normal external ear exam - Neck Neck exam: Present: normal inspection, full ROM. Absent: tenderness, meningismus, lymphadenopathy, thyromegaly - Expanded Neck Exam Expanded Neck exam: Absent: tenderness, midline deformity, anterior neck swelling, thyroid mass, carotid bruit, tracheal deviation - Respiratory Respiratory exam: Present: normal lung sounds bilaterally. Absent: respiratory distress, wheezes, stridor, chest wall tenderness - Cardiovascular Cardiovascular Exam: Present: regular rate, normal rhythm, normal heart sounds. Absent: systolic murmur, diastolic murmur, rubs, gallop - GI/Abdominal GI/Abdominal exam: Present: soft, normal bowel sounds. Absent: distended, tenderness, bruit, hernia - Rectal Rectal exam: Present: deferred - Extremities Exam Extremities exam: Present: normal inspection, full ROM, normal capillary refill. Absent: tenderness, pedal edema, joint swelling - Back Exam Back exam: Present: normal inspection, full ROM. Absent: tenderness, CVA tenderness (R), CVA tenderness (L), muscle spasm, rash noted - Neurological Exam Neurological exam: Present: alert, oriented X3, CN II-XII intact, normal gait, reflexes normal - Psychiatric Psychiatric exam: Present: normal affect, normal mood - Skin Skin exam: Present: warm ED Course Vital Signs 10/14/18 01:30 Temperature 97.6 F Pulse Rate 73 Respiratory 18 Rate Blood Pressure 132/90 O2 Sat by Pulse 100 Oximetry ALEXANDRA score - Alexandra Score Age > 65: (0) No Aspirin use within the Past 7 Days: (0) No 3 or more CAD Risk Factors: (0) No 2 or more Angina events in past 24 hrs: (0) No Known CAD with more than 50% Stenosis: (0) No Elevated Cardiac Markers: (0) No ST Deviation Greater than 0.5mm: (0) No ALEXANDRA Score: 0 ED Medical Decision Making - Lab Data Result diagrams: 10/14/18 01:46 10/14/18 01:46 - EKG Data EKG shows normal: sinus rhythm Rate: normal - EKG Data When compared to previous EKG there are: no significant change Interpretation: normal EKG (ekg interp by ed attending NSR no st elevation no ectopy ) - Radiology Data Radiology results: report reviewed, image reviewed - Medical Decision Making this is chest wall pain heart score: 0, ALEXANDRA score: 0, Trop <0.01 x 2, labs normal, pt statesa this pain is exacerbate by movement , position and palpation pain is reproducible to palpation as stated. cxr: normal no opacties no infiltrates, this is a recurring problem for this patient, pain is usually controlled with norco and or tramadol, pt last rx tramadol 09/06/2018 , pt failed to follow up with pcp , will dc with rx for tylenol po prn pain, pt will follow up with pcp in 2-3 days given referral to [facility] , pt verbalized agreement and understanding of same. pt is currenlty sleeping soundly with nad ambulatory with steady gait no cp no sob no dizziness no light headedness no back pt for dc to home in stable condition at this time. Critical care attestation.: If time is entered above; I have spent that time in minutes in the direct care of this critically ill patient, excluding procedure time. ED Disposition Clinical Impression: Chest wall pain Disposition: - TO HOME OR SELFCARE Is pt being admited?: No Does the pt Need Aspirin: No Condition: Stable Instructions: Chest Pain (ED), Costochondritis (ED) Prescriptions: Acetaminophen [Tylenol Extra Strength] 1,000 mg PO QID PRN #60 tablet PRN Reason: pain Cyclobenzaprine [Flexeril] 10 mg PO TID PRN #30 tablet PRN Reason: Muscle Spasm Menthol/Camphor [[place] Mena Ointment] 1 applicatio TP QID PRN #1 tube PRN Reason: pain Referrals: [facility] [Outside] - 3-5 Days Forms: Work/School Release Form(ED) Time of Disposition: 07:26
--- NOTE | 2018-10-14 07:57 | XRay Report ---
PROCEDURE: XR CHEST ROUTINE 2V TECHNIQUE: PA and lateral chest radiographs were obtained. HISTORY: chest pain COMPARISONS: 09/06/2018. FINDINGS: No mediastinal shift. Cardiac silhouette is not enlarged. No pneumothorax, effusion, or focal pulmo nary opacity. No acute skeletal finding. IMPRESSION: No focal pulmonary opacity. This document is electronically signed by Valentino Cortez MD., October 14 2018 07:55:02 AM ET
== END 2018-10-14 08:59 | disposition home or self-care (01) ==
LOC: ED 01:01
DX: R07.89 Other chest pain (principal); Z88.6 Allergy status to analgesic agent; Z91.013 Allergy to seafood; Z91.012 Allergy to eggs
CPT/HCPCS: 36415; 71046; 80048; 84484; 84703; 85025; 93005; 93010

== ENCOUNTER 2019-03-17 20:31 | Emergency (ER) | payer SELFPAY ==
--- NOTE | 2019-03-17 20:39 | Event Note ---
ED Screening Note Date of service: 03/17/19 Time: 20:35 ED Screening Note: This is a 38 y.o. F. that presents to the ER with hives, bruising, and difficulty swallowing for 1 hour. States hives for 1 week worsening. Reports eating salmon and green beans this evening from a restaurant. PMH of anemia Nonsmoker This initial assessment/diagnostic orders/clinical plan/treatment(s) is/are subject to change based on patients health status, clinical progression and re- assessment by fellow clinical providers in the ED. Further treatment and workup at subsequent clinical providers discretion. Patient/guardian urged not to elope from the ED as their condition may be serious if not clinically assessed and managed. Initial orders include: ACC for further evaluation.
[2019-03-17] MEDS ORDERED: BENADRYL IV ONE (21:18)
[2019-03-17] MEDS ORDERED: PEPCID IV ONE (21:18)
[2019-03-17] MEDS ORDERED: SOLU-Medrol IV ONE (21:18)
[2019-03-17] MEDS ORDERED: TYLENOL PO ONE (21:20)
--- NOTE | 2019-03-17 22:45 | Emergency Department Report ---
ED General Adult HPI - General Chief complaint: Allergic Reaction Stated complaint: CHEST PAIN, BRUISING, HIVES Time Seen by Provider: 03/17/19 20:34 Source: patient Mode of arrival: Ambulatory Limitations: No Limitations - History of Present Illness Initial comments: Patient is a 38-year-old -[place] female with a history of chronic migraine headache who presents today complaining of acute onset of persistent itchy erythematous maculopapular itchy urticarial rashes diffusely for the last 2 days with no known etiology. Patient denies chest pain, shortness of breath, swollen lips or tongue, swollen throat, dysphagia, dysphonia, nausea, vomiting, fever, chills, diarrhea or abdominal pain or dizziness. MD Complaint: Itching, diffuse urticarial rashes, allergic reaction -: Sudden, days(s) (2) Location: face, neck, chest, back, abdomen, upper extremity, lower extremity Radiation: non-radiation Severity scale (0 -10): 5 Quality: burning, aching, sharp Consistency: constant Improves with: none Worsens with: none Associated Symptoms: denies other symptoms, rash. denies: confusion, chest pain, cough, diaphoresis, fever/chills, headaches, loss of appetite, malaise, nausea/vomiting, seizure, shortness of breath, syncope, weakness Treatments Prior to Arrival: none - Related Data Previous Rx's Medication Instructions Recorded Last Taken Type oxyCODONE /ACETAMINOPHEN [Percocet 1 tab PO Q6HR PRN #20 tablet 02/04/17 Unknown Rx 5/325 mg] traMADol [Ultram] 50 mg PO Q6HR PRN #12 tablet 08/01/17 Unknown Rx predniSONE [Deltasone] 20 mg PO QDAY 5 Days #5 tab 11/13/17 Unknown Rx Acetaminophen [Tylenol Arthritis] 650 mg PO Q6HR PRN #30 tablet.er 02/08/18 Unknown Rx Amoxicillin [Amoxicillin TAB] 875 mg PO BID #20 tablet 05/24/18 Unknown Rx HYDROcodone/APAP 5-325 [[place] 1 - 2 each PO Q6HR PRN #20 tablet 05/24/18 Unknown Rx 5/325] Tramadol HCl [Ultram] 50 mg PO Q8HR #20 tablet 09/06/18 Unknown Rx Acetaminophen [Tylenol Extra 1,000 mg PO QID PRN #60 tablet 10/14/18 Unknown Rx Strength] Cyclobenzaprine [Flexeril] 10 mg PO TID PRN #30 tablet 10/14/18 Unknown Rx Menthol/Camphor [[place] 1 applicatio TP QID PRN #1 tube 10/14/18 Unknown Rx Ointment] EPINEPHrine [Epipen] 0.3 mg IJ ONCE PRN #1 auto.injct 03/17/19 Unknown Rx Prednisone [predniSONE 10 mg 10 mg PO .TAPER #1 tab.ds.pk 03/17/19 Unknown Rx (6-Day Pack, 21 Tabs)] hydrOXYzine PAMOATE [Vistaril] 50 mg PO Q8H PRN #30 capsule 03/17/19 Unknown Rx raNITIdine HCl [Zantac] 150 mg PO Q12H #30 tablet 03/17/19 Unknown Rx Allergies Allergy/AdvReac Type Severity Reaction Status Date / Time naproxen [From Naprosyn] Allergy Hives Verified 02/01/17 11:46 shrimp Allergy Swelling Verified 09/05/18 22:28 eggs Allergy Swelling Uncoded 09/05/18 22:28 ED Review of Systems ROS: Stated complaint: CHEST PAIN, BRUISING, HIVES Other details as noted in HPI Constitutional: denies: chills, fever Eyes: denies: eye pain, eye discharge, vision change ENT: denies: ear pain, throat pain Respiratory: denies: cough, orthopnea, shortness of breath, SOB with exertion, wheezing Cardiovascular: denies: chest pain, palpitations, edema, syncope Endocrine: no symptoms reported Gastrointestinal: denies: abdominal pain, nausea, diarrhea Genitourinary: denies: urgency, dysuria, discharge Musculoskeletal: denies: back pain, joint swelling, arthralgia Skin: rash, change in color, pruritus, other ( erythematous maculopapular urticarial rashes). denies: lesions Neurological: denies: headache, weakness, paresthesias Psychiatric: denies: anxiety, depression Hematological/Lymphatic: denies: easy bleeding, easy bruising ED Past Medical Hx - Past Medical History Previous Medical History?: Yes Hx Congestive Heart Failure: No Hx Diabetes: No Hx Headaches / Migraines: Yes Hx Asthma: No Hx COPD: No Additional medical history: overnight admission for CP 2017. admission for migraine 01/2017 - Surgical History Past Surgical History?: Yes Additional Surgical History: ectopic. Breast biopsy- benign - Social History Smoking Status: Never Smoker Substance Use Type: Alcohol - Medications Home Medications: Home Medications Medication Instructions Recorded Confirmed Last Taken Type oxyCODONE /ACETAMINOPHEN [Percocet 1 tab PO Q6HR PRN #20 tablet 02/04/17 Unknown Rx 5/325 mg] traMADol [Ultram] 50 mg PO Q6HR PRN #12 tablet 08/01/17 Unknown Rx predniSONE [Deltasone] 20 mg PO QDAY 5 Days #5 tab 11/13/17 Unknown Rx Acetaminophen [Tylenol Arthritis] 650 mg PO Q6HR PRN #30 tablet.er 02/08/18 Unknown Rx Amoxicillin [Amoxicillin TAB] 875 mg PO BID #20 tablet 05/24/18 Unknown Rx HYDROcodone/APAP 5-325 [[place] 1 - 2 each PO Q6HR PRN #20 tablet 05/24/18 Unknown Rx 5/325] Tramadol HCl [Ultram] 50 mg PO Q8HR #20 tablet 09/06/18 Unknown Rx Acetaminophen [Tylenol Extra 1,000 mg PO QID PRN #60 tablet 10/14/18 Unknown Rx Strength] Cyclobenzaprine [Flexeril] 10 mg PO TID PRN #30 tablet 10/14/18 Unknown Rx Menthol/Camphor [[place] 1 applicatio TP QID PRN #1 tube 10/14/18 Unknown Rx Ointment] EPINEPHrine [Epipen] 0.3 mg IJ ONCE PRN #1 auto.injct 03/17/19 Unknown Rx Prednisone [predniSONE 10 mg 10 mg PO .TAPER #1 tab.ds.pk 03/17/19 Unknown Rx (6-Day Pack, 21 Tabs)] hydrOXYzine PAMOATE [Vistaril] 50 mg PO Q8H PRN #30 capsule 03/17/19 Unknown Rx raNITIdine HCl [Zantac] 150 mg PO Q12H #30 tablet 03/17/19 Unknown Rx ED Physical Exam - General Limitations: No Limitations General appearance: alert, in no apparent distress - Head Head exam: Present: atraumatic, normocephalic, normal inspection - Eye Eye exam: Present: normal appearance, PERRL, EOMI - ENT ENT exam: Present: normal exam, normal orophraynx, mucous membranes moist, TM's normal bilaterally, normal external ear exam - Neck Neck exam: Present: normal inspection, full ROM. Absent: tenderness, meningismus, lymphadenopathy - Respiratory Respiratory exam: Present: normal lung sounds bilaterally. Absent: respiratory distress, wheezes, rales, rhonchi, chest wall tenderness, accessory muscle use, decreased breath sounds, prolonged expiratory - Cardiovascular Cardiovascular Exam: Present: regular rate, normal rhythm, normal heart sounds. Absent: systolic murmur, diastolic murmur, rubs, gallop - GI/Abdominal GI/Abdominal exam: Present: soft, normal bowel sounds - Rectal Rectal exam: Present: deferred - Extremities Exam Extremities exam: Present: normal inspection, full ROM, normal capillary refill - Back Exam Back exam: Present: normal inspection, full ROM. Absent: tenderness, CVA tenderness (R), CVA tenderness (L), muscle spasm - Neurological Exam Neurological exam: Present: alert, oriented X3, CN II-XII intact, normal gait, reflexes normal - Psychiatric Psychiatric exam: Present: normal affect, normal mood - Skin Skin exam: Present: warm, dry, intact, rash, erythema, urticaria, other (diffuse erythematous maculopapular urticarial rashes) ED Course Vital Signs 03/17/19 20:40 Temperature 97.9 F Pulse Rate 88 Respiratory 18 Rate Blood Pressure 129/99 O2 Sat by Pulse 100 Oximetry - Reevaluation(s) Reevaluation #1: 03/17/19 22:51 This is a 38-year-old female who presented to the ED with acute onset each erythematous maculopapular urticarial rashes diffusely for 2 days with no known etiology. In the ED, patient is alert and oriented 3 and is not in distress with normal vital signs. Patient was treated for acute allergic reaction with Solu-Medrol, Benadryl and Pepcid. On reevaluation, patient is resting comfortably and sleeping and itching and hives have resolved. Patient was discharged home on medications and advised to follow-up with her primary care physician in 5-7 days for reevaluation or return to the ED immediately if symptoms get worse. ED Medical Decision Making - Medical Decision Making This is a 38-year-old female who presented to the ED with acute onset each erythematous maculopapular urticarial rashes diffusely for 2 days with no known etiology. In the ED, patient is alert and oriented 3 and is not in distress with normal vital signs. Patient was treated for acute allergic reaction with Solu-Medrol, Benadryl and Pepcid. On reevaluation, patient is resting comfortably and sleeping and itching and hives have resolved. Patient was discharged home on medications and advised to follow-up with her primary care physician in 5-7 days for reevaluation or return to the ED immediately if symptoms get worse. - Differential Diagnosis Acute allergic reaction, Urticaria, Itching, nonspecific rashes Critical care attestation.: If time is entered above; I have spent that time in minutes in the direct care of this critically ill patient, excluding procedure time. ED Disposition Clinical Impression: Acute urticaria, Itching with irritation Acute allergic reaction Qualifiers: Encounter type: initial encounter Qualified Code(s): T78.40XA - Allergy, unspecified, initial encounter Disposition: TO HOME OR SELFCARE Is pt being admited?: No Does the pt Need Aspirin: No Condition: Stable Instructions: Urticaria (ED), Itchy Skin (ED), Allergies (ED) Additional Instructions: Take medications with food, drink plenty of fluids and follow-up with your primary care physician in 5-7 days for reevaluation. Return to the emergency department immediately for further evaluation if his symptoms gets worse. Prescriptions: EPINEPHrine [Epipen] 0.3 mg IJ ONCE PRN #1 auto.injct PRN Reason: Anaphylaxis Prednisone [predniSONE 10 mg (6-Day Pack, 21 Tabs)] 10 mg PO .TAPER #1 tab.ds.pk hydrOXYzine PAMOATE [Vistaril] 50 mg PO Q8H PRN #30 capsule PRN Reason: Itching raNITIdine HCl [Zantac] 150 mg PO Q12H #30 tablet Referrals: FIDE MCKEON MD [Primary Care Provider] - 3-5 Days Time of Disposition: 22:43 Print Language: ESTONIAN
[2019-03-18 00:12] VITALS: BP 116/78
== END 2019-03-18 00:12 | disposition home or self-care (01) ==
LOC: ED 20:31
DX: T78.40XA Allergy, unspecified, initial encounter (principal); G43.909 Migraine, unspecified, not intractable, without status migrainosus; Z79.899 Other long term (current) drug therapy; Z91.013 Allergy to seafood; Z91.012 Allergy to eggs; Z88.6 Allergy status to analgesic agent; Y92.89 Other specified places as the place of occurrence of the external cause
CPT/HCPCS: 96374; 96375; 99283; J1200; J2930

== ENCOUNTER 2019-04-23 02:20 | Emergency (ER) | payer BC ==
[2019-04-23 02:26] VITALS: BP 140/98
[2019-04-23 02:53] LABS: Basophils % (Auto) 0.2 % (0.0-1.8); Eosinophils # (Auto) 0.1 K/mm3 (0.0-0.4); Eosinophils % (Auto) 1.3 % (0.0-4.3); Hemoglobin 11.4 gm/dl (10.1-14.3); Lymphocytes # (Auto) 0.9 K/mm3 (1.2-5.4); Lymphocytes % (Auto) 12.2 % (13.4-35.0); Mean Corpuscular HGB Conc 33 % (30-34); Mean Corpuscular Volume 89 fl (79-97); Monocytes # (Auto) 0.4 K/mm3 (0.0-0.8); Monocytes % (Auto) 6.3 % (0.0-7.3); Platelet Count 287 K/mm3 (140-440); Red Blood Count 3.95 M/mm3 (3.65-5.03); Red Cell Distribution Width 13.1 % (13.2-15.2)
[2019-04-23] MEDS ORDERED: TYLENOL PO ONE (02:58)
[2019-04-23 03:16] LABS: Alanine Aminotransferase 13 units/L (7-56); Albumin 3.3 g/dL (3.9-5); BUN/Creatinine Ratio 14; Blood Urea Nitrogen 14 mg/dL (7-17); Calcium 8.3 mg/dL (8.4-10.2); Hemolysis Index 4
[2019-04-23 04:52] LABS: Bacteria,Urine 1+ /HPF (Negative); Bilirubin,Urine NEG (Negative); Blood,Urine LG (Negative); Color,Urine Yellow (Yellow); Mucus,Urine 1+ /HPF
[2019-04-23 04:53] LABS: Protein,Urine >500 mg/dL (Negative)
[2019-04-23] MEDS ORDERED: XYLOCAINE 1% MPF 5 mL INFILTRATI ONE (04:59)
[2019-04-23] MEDS ORDERED: ROCEPHIN IM ONE (04:59)
[2019-04-23] MEDS ORDERED: NORCO 7.5/325 PO ONE (05:02)
[2019-04-23] MEDS ORDERED: ZOFRAN ODT PO ONE (05:02)
--- NOTE | 2019-04-23 05:07 | Emergency Department Report ---
ED Abdominal Pain HPI - General Chief Complaint: Abdominal Pain Stated Complaint: ABD PAIN Source: patient Mode of arrival: Ambulatory Limitations: No Limitations - History of Present Illness Initial Comments: Patient is a 39-year-old -[place] female who presents to the ED with a comment of acute onset of persistent severe diffuse lower abdominal pain for the last 5 hours. Patient also states that she has been having her menstrual cycle for the last 2 days. The patient states that she usually has dysmenorrhea but that the last 5 hours the lower abdominal pain has worsened and such that she was unable to sleep because of severe pain. Patient denies nausea, vomiting, dysuria, urinary frequency and urgency, low back pain, dizziness, fever, chills, cough, chest pain, shortness of breath or diarrhea. MD Complaint: abdominal pain, other (dysmenorrhea) -: Sudden, hour(s) (5) Location: suprapubic Radiation: suprapubic Migration to: no migration Severity: severe Severity scale (0 -10): 10 Quality: cramping, aching, sharp Consistency: constant Improves With: nothing Worsens With: nothing Associated Symptoms: denies other symptoms, hematuria, anorexia. denies: nausea, vomiting, diarrhea, fever, chills, dysuria, hematemesis, hematochezia, syncope - Related Data LMP Date: 04/21/19 Previous Rx's Medication Instructions Recorded Last Taken Type oxyCODONE /ACETAMINOPHEN [Percocet 1 tab PO Q6HR PRN #20 tablet 02/04/17 Unknown Rx 5/325 mg] traMADol [Ultram] 50 mg PO Q6HR PRN #12 tablet 08/01/17 Unknown Rx predniSONE [Deltasone] 20 mg PO QDAY 5 Days #5 tab 11/13/17 Unknown Rx Acetaminophen [Tylenol Arthritis] 650 mg PO Q6HR PRN #30 tablet.er 02/08/18 Unknown Rx Amoxicillin [Amoxicillin TAB] 875 mg PO BID #20 tablet 05/24/18 Unknown Rx HYDROcodone/APAP 5-325 [[place] 1 - 2 each PO Q6HR PRN #20 tablet 05/24/18 Unknown Rx 5/325] Tramadol HCl [Ultram] 50 mg PO Q8HR #20 tablet 09/06/18 Unknown Rx Acetaminophen [Tylenol Extra 1,000 mg PO QID PRN #60 tablet 10/14/18 Unknown Rx Strength] Cyclobenzaprine [Flexeril] 10 mg PO TID PRN #30 tablet 10/14/18 Unknown Rx Menthol/Camphor [[place] 1 applicatio TP QID PRN #1 tube 10/14/18 Unknown Rx Ointment] EPINEPHrine [Epipen] 0.3 mg IJ ONCE PRN #1 auto.injct 03/17/19 Unknown Rx Prednisone [predniSONE 10 mg 10 mg PO .TAPER #1 tab.ds.pk 03/17/19 Unknown Rx (6-Day Pack, 21 Tabs)] hydrOXYzine PAMOATE [Vistaril] 50 mg PO Q8H PRN #30 capsule 03/17/19 Unknown Rx raNITIdine HCl [Zantac] 150 mg PO Q12H #30 tablet 03/17/19 Unknown Rx Ondansetron [Zofran Odt] 4 mg PO Q8HR PRN #15 tab.rapdis 04/23/19 Unknown Rx cephALEXin [Keflex] 500 mg PO Q6HR #40 capsule 04/23/19 Unknown Rx traMADol [Ultram] 50 mg PO Q6HR PRN #15 tablet 04/23/19 Unknown Rx Allergies Allergy/AdvReac Type Severity Reaction Status Date / Time naproxen [From Naprosyn] Allergy Hives Verified 02/01/17 11:46 shrimp Allergy Swelling Verified 09/05/18 22:28 eggs Allergy Swelling Uncoded 09/05/18 22:28 ED Review of Systems ROS: Stated complaint: ABD PAIN Other details as noted in HPI Constitutional: denies: chills, fever Eyes: denies: eye pain, eye discharge, vision change ENT: denies: ear pain, throat pain Respiratory: denies: cough, shortness of breath, wheezing Cardiovascular: denies: chest pain, palpitations Endocrine: no symptoms reported Gastrointestinal: abdominal pain. denies: nausea, vomiting, diarrhea Genitourinary: abnormal menses, other (dysmenorrhea). denies: urgency, dysuria, discharge Musculoskeletal: denies: back pain, joint swelling, arthralgia Skin: denies: rash, lesions Neurological: denies: headache, weakness, paresthesias Psychiatric: denies: anxiety, depression Hematological/Lymphatic: denies: easy bleeding, easy bruising ED Past Medical Hx - Past Medical History Previous Medical History?: Yes Hx Congestive Heart Failure: No Hx Diabetes: No Hx Headaches / Migraines: Yes Hx Asthma: No Hx COPD: No Additional medical history: overnight admission for CP 2017. admission for migraine 01/2017 - Surgical History Past Surgical History?: Yes Additional Surgical History: ectopic. Breast biopsy- benign - Social History Smoking Status: Never Smoker Substance Use Type: Alcohol - Medications Home Medications: Home Medications Medication Instructions Recorded Confirmed Last Taken Type oxyCODONE /ACETAMINOPHEN [Percocet 1 tab PO Q6HR PRN #20 tablet 02/04/17 Unknown Rx 5/325 mg] traMADol [Ultram] 50 mg PO Q6HR PRN #12 tablet 08/01/17 Unknown Rx predniSONE [Deltasone] 20 mg PO QDAY 5 Days #5 tab 11/13/17 Unknown Rx Acetaminophen [Tylenol Arthritis] 650 mg PO Q6HR PRN #30 tablet.er 02/08/18 Unknown Rx Amoxicillin [Amoxicillin TAB] 875 mg PO BID #20 tablet 05/24/18 Unknown Rx HYDROcodone/APAP 5-325 [[place] 1 - 2 each PO Q6HR PRN #20 tablet 05/24/18 Unknow n Rx 5/325] Tramadol HCl [Ultram] 50 mg PO Q8HR #20 tablet 09/06/18 Unknown Rx Acetaminophen [Tylenol Extra 1,000 mg PO QID PRN #60 tablet 10/14/18 Unknown Rx Strength] Cyclobenzaprine [Flexeril] 10 mg PO TID PRN #30 tablet 10/14/18 Unknown Rx Menthol/Camphor [[place] 1 applicatio TP QID PRN #1 tube 10/14/18 Unknown Rx Ointment] EPINEPHrine [Epipen] 0.3 mg IJ ONCE PRN #1 auto.injct 03/17/19 Unknown Rx Prednisone [predniSONE 10 mg 10 mg PO .TAPER #1 tab.ds.pk 03/17/19 Unknown Rx (6-Day Pack, 21 Tabs)] hydrOXYzine PAMOATE [Vistaril] 50 mg PO Q8H PRN #30 capsule 03/17/19 Unknown Rx raNITIdine HCl [Zantac] 150 mg PO Q12H #30 tablet 03/17/19 Unknown Rx Ondansetron [Zofran Odt] 4 mg PO Q8HR PRN #15 tab.rapdis 04/23/19 Unknown Rx cephALEXin [Keflex] 500 mg PO Q6HR #40 capsule 04/23/19 Unknown Rx traMADol [Ultram] 50 mg PO Q6HR PRN #15 tablet 04/23/19 Unknown Rx ED Physical Exam - General Limitations: No Limitations General appearance: alert, in no apparent distress - Head Head exam: Present: atraumatic, normocephalic, normal inspection - Eye Eye exam: Present: normal appearance, PERRL, EOMI Pupils: Present: normal accommodation - ENT ENT exam: Present: normal exam, normal orophraynx, mucous membranes moist, TM's normal bilaterally, normal external ear exam - Neck Neck exam: Present: normal inspection, full ROM - Respiratory Respiratory exam: Present: normal lung sounds bilaterally. Absent: respiratory distress, wheezes, rales, rhonchi, accessory muscle use, decreased breath sounds, prolonged expiratory - Cardiovascular Cardiovascular Exam: Present: regular rate, normal rhythm, normal heart sounds. Absent: systolic murmur, diastolic murmur, rubs, gallop - GI/Abdominal GI/Abdominal exam: Present: soft, tenderness (diffuse moderate lower abdominal tenderness), normal bowel sounds. Absent: guarding, rebound, hyperactive bowel sounds, hypoactive bowel sounds, organomegaly, mass, pulsatile mass - Bi-manual exam: Present: other (Pelvic exam declined by patient) - Extremities Exam Extremities exam: Present: normal inspection, full ROM, normal capillary refill - Back Exam Back exam: Present: normal inspection, full ROM. Absent: tenderness, CVA tenderness (R), CVA tenderness (L), muscle spasm, vertebral tenderness - Neurological Exam Neurological exam: Present: alert, oriented X3, CN II-XII intact, normal gait, reflexes normal - Psychiatric Psychiatric exam: Present: normal affect, normal mood - Skin Skin exam: Present: warm, dry, intact, normal color. Absent: rash ED Course Vital Signs 04/23/19 04/23/19 02:21 03:06 Temperature 98.5 F Pulse Rate 99 H Respiratory 18 18 Rate Blood Pressure 140/98 O2 Sat by Pulse 96 Oximetry - Reevaluation(s) Reevaluation #1: 04/23/19 05:10 This is a 29-year-old female who presented to the ED with acute onset diffuse lower abdominal pain and dysmenorrhea for the last 5 hours. In the ED, patient is alert and oriented 3 and is not in distress but appears to be in pain. Lab test results were reviewed and are nonactionable except for urinalysis which shows significant urinary tract infection with blood consistent with menstrual cycle. Because of the physical exam findings and lab test results, the patient's symptoms are likely due to worsening dysmenorrhea superimposed on acute urinary tract infection. Patient was treated initially in the ED for pain and also given initial antibiotics. Patient was discharged home on pain medications and antibiotics and advised to follow-up with her primary care physician in 7-10 days for reevaluation or return to the ED immediately if symptoms get worse. ED Medical Decision Making - Lab Data Result diagrams: 04/23/19 02:35 04/23/19 02:35 - Medical Decision Making This is a 29-year-old female who presented to the ED with acute onset diffuse lower abdominal pain and dysmenorrhea for the last 5 hours. In the ED, patient is alert and oriented 3 and is not in distress but appears to be in pain. Lab test results were reviewed and are nonactionable except for urinalysis which shows significant urinary tract infection with blood consistent with menstrual cycle. Because of the physical exam findings and lab test results, the patient's symptoms are likely due to worsening dysmenorrhea superimposed on acute urinary tract infection. Patient was treated initially in the ED for pain and also given initial antibiotics. Patient was discharged home on pain medications and antibiotics and advised to follow-up with her primary care physician in 7-10 days for reevaluation or return to the ED immediately if symptoms get worse. - Differential Diagnosis abdominal pain; dysmenorrhea; acute UTI; Critical care attestation.: If time is entered above; I have spent that time in minutes in the direct care of this critically ill patient, excluding procedure time. ED Disposition Clinical Impression: Dysmenorrhea, Acute urinary tract infection Abdominal pain Qualifiers: Abdominal location: lower abdomen, unspecified Qualified Code(s): R10.30 - Lower abdominal pain, unspecified Disposition: - TO HOME OR SELFCARE Is pt being admited?: No Does the pt Need Aspirin: No Condition: Stable Instructions: Abdominal Pain (ED), Urinary Tract Infection in Women (ED), Dysme norrhea (ED) Additional Instructions: Take medication with food, drink plenty of fluids and follow up with your primary care physician in 7-10 days for reevaluation. Return to the ED immediately if symptoms gets worse. Prescriptions: cephALEXin [Keflex] 500 mg PO Q6HR #40 capsule traMADol [Ultram] 50 mg PO Q6HR PRN #15 tablet PRN Reason: Pain Ondansetron [Zofran Odt] 4 mg PO Q8HR PRN #15 tab.rapdis PRN Reason: Nausea Referrals: PRIMARY CARE,MD [Primary Care Provider] - 3-5 Days Time of Disposition: 05:03 Print Language: PANAMANIAN
== END 2019-04-23 05:36 | disposition home or self-care (01) ==
LOC: ED 02:20
DX: N94.6 Dysmenorrhea, unspecified (principal); N39.0 Urinary tract infection, site not specified; G43.909 Migraine, unspecified, not intractable, without status migrainosus; Z91.013 Allergy to seafood; Z91.012 Allergy to eggs; Z88.5 Allergy status to narcotic agent; Z79.899 Other long term (current) drug therapy; Z98.890 Other specified postprocedural states
CPT/HCPCS: 36415; 80053; 81001; 84703; 85025; 96372; 99284; J0696; Q0162